=== PATIENT | female | born 1965 | race Caucasian/White ===

== ENCOUNTER 2018-06-27 18:30 | Emergency (ER) | payer BC, SELFPAY ==
[2018-06-27 18:31] VITALS: BP 129/77; PULSE 71; RESP 18; TEMP 36.9; O2SAT 99; BMI 26.6
--- NOTE | 2018-06-27 18:45 | ED.VISSUMM ---
- ER Visit Summary Date of Service: 06/27/18 Chief Complaint: Abdominal pain History of Present Illness: The patient is a 52 F who presents with abdominal pain. Started early this morning. She describes a diffuse cramping sensation throughout her abdomen. She has had nausea with vomiting with it. She started having a lot of loose stools and diarrhea. Now she states she has bright red blood per rectum. Denies any urinary symptoms. No history of this in the past. She denies fevers. She did nothing for it. She has had a hysterectomy in the past. Physical Examination: Vital signs reviewed. HEENT exam unremarkable. Heart is regular rate and rhythm without murmurs. Lungs are clear to auscultation. Abdomen is soft very mild diffuse tenderness. Rectal exam reveals a small hemorrhoid. No tenderness to palpation. No fissures. Extremities reveal no edema. Skin exam normal. Neurologic exam normal. Test Results: Lipitor studies are normal. FOBT positive. Acute abdominal series reveals chronic changes. Emergency Department Course and Treatment: Received Bentyl and Zofran. She feels much better. I believe this is likely a gastroenteritis. Patient will be treated with Bentyl and Zofran at home. She did have some slight blood in her stool. This is likely either from a hemorrhoid or irritation. Her blood counts are normal. She will monitor this at home Treatment Plan: [] Disposition: Discharge Impression: Gastroenteritis This note was generated with [employer] dictation software. It may contain incorrect words, spelling, and punctuation that were not noted in review of the chart prior to signing ED Disposition - Plan for ED Patient: Chief Complaint: Abd Pain Referrals: Piyush Moya III, MD [Primary Care Provider] -
[2018-06-27] MEDS: Ondansetron 4 MG/2 ML Vial IV (19:07)
[2018-06-27] MEDS: Dicyclomine 20 MG/2 ML Vial IM (19:09)
[2018-06-27 19:11] LABS: Absolute Lymphocyte Count 1.72 X10^3/ul (0.83-4.51); Absolute Neutrophil Count 6.7 X10^3/uL (2.0-7.7); Basophil# 0.02 X10^3/uL; Basophil% 0.2 % (0-1); Eosinophil# 0.03 X10^3/uL; Eosinophils% 0.3 % (0-5); Hematocrit 43.6 % (37-47); Hemoglobin 14.8 g/dl (12.0-15.0); Lymphocyte # 1.72 X10^3/ul (4.0); Mean Corp Hgb Conc 33.9 g/gl (32-36); Mean Corpuscular Hgb 28.7 pg (27.0-32.0); Mean Corpuscular Volume 84.5 fL (81-99); Mean Platelet Vol. 9.7 fl (6.2-12.0); Monocyte# 0.52 X10^3/uL; Monocyte% 5.8 % (0-10); Neutrophil # 6.73 X10^3/uL (2.7-7.7); Neutrophil % 74.5 % (47-70); Platelet Count 288 K/mm3 (150-450); RBC Distribution Width CV 11.8 % (11.6-14.6); RBC Distribution Width SD 36.3 fl (35.1-43.9); Red Blood Count 5.16 M/mm3 (4.2-5.4)
[2018-06-27 19:20] LABS: POSITIVE COUNT NO; POSITIVE DIFFERENTIAL NO; POSITIVE MORPHOLOGY NO
[2018-06-27 19:27] LABS: BUN 6 mg/dL (7-18); EST Glomerular Filtration Rate 94 mL/min (>60); Estimated Creatinine Clearance 86.52 ml/min; Glucose 95 mg/dL (74-106)
[2018-06-27 19:28] LABS: ALB/GLOB Ratio 1.1 RATIO (0.9-2.4); AST(SGOT) 16 U/L (15-37); Alanine Aminotransfer ALT/SGPT 23 U/L (13-56); Albumin, Serum 4.1 g/dL (3.2-5.0); Alkaline Phosphatase 60 U/L (45-117); Anion Gap 10 (5-15); BUN/Creat Ratio 8.6 RATIO (10-20); Calcium,Total 9.5 mg/dL (8.5-10.1); Chloride 108 mmol/L (98-107); Est Glom Filt Rate - Afr Amer 114 mL/min (>60); Globulin 3.6 g/dL (2.2-4.2); Lipase 113 U/L (73-393); Potassium 3.7 mmol/L (3.5-5.1); Protein, Total 7.7 g/dL (6.4-8.2); Sodium Level 142 mmol/L (136-145)
[2018-06-27 19:48] VITALS: BP 114/76; PULSE 55; RESP 16; O2SAT 98
--- NOTE | 2018-06-27 20:04 | ED.DEP ---
ED Disposition - Plan for ED Patient: Disposition: Home or Assisted Living Chief Complaint: Abd Pain Instructions: ED Abdominal Pain Unkn Cause Prescriptions: Ondansetron [Zofran Odt] 4 mg PO Q8H PRN PRN #10 tab PRN Reason: Nausea Dicyclomine HCl [Bentyl] 20 mg PO TIDAC #20 cap Referrals: Piyush Moya III, MD [Primary Care Provider] -
[2018-06-27 20:18] VITALS: BP 114/76; PULSE 55; RESP 16; O2SAT 98
== END 2018-06-27 20:19 | disposition home or self-care (01) ==
PROVIDERS: Emergency Provider Emergency Medicine; Family Provider Family Medicine; PCP Family Medicine
DX: K52.9 Noninfective gastroenteritis and colitis, unspecified (principal); K64.9 Unspecified hemorrhoids; K62.5 Hemorrhage of anus and rectum; K21.9 Gastro-esophageal reflux disease without esophagitis; Z79.899 Other long term (current) drug therapy; Z90.710 Acquired absence of both cervix and uterus
CPT/HCPCS: 74022; 80053; 82274; 83690; 85025; 96372; 96374; 99283; A4216; J2405

== ENCOUNTER 2019-05-16 17:21 | Emergency (ER) | payer BC, SELFPAY ==
[2019-05-16 17:22] VITALS: BP 119/81; PULSE 85; RESP 16; TEMP 36.4; O2SAT 98; BMI 26.6
--- NOTE | 2019-05-16 18:17 | ED.VIS.HA ---
History of Present Illness Chief Complaint: Headache Informant: Patient Onset: Days - 4 Context: Onset - awoke w/ sx Timing: Continuous Location: Left neck up to base of head Current Severity: Moderate Maximum Severity: Moderate Worsened by: Turning head especially to the left, palpation Relieved by: Remaining still Associated Symptoms: Negative for: Fever, Nausea, Vomiting, Sore Throat, Numbness, Tingling, Preceding Aura, Visual Changes, Blurred Vision, Photophobia, Visual Loss Injury: - - No injury or known overuse the day before, woke up this way Narrative: Patient does not feel she has an internal headache. She states she is able to turn her head to reproduce her symptoms and push on the affected area and reproduce them. No neurologic symptoms. No thunderclap. No known family history of cerebral aneurysms. Past Medical History - Allergies and Home Meds Allergies/Adverse Reactions: Allergies No Known Allergies Allergy (Verified 05/16/19 17:24) Primary Care Physician: Piyush Moya III, MD [Primary Care Provider] - Past Medical History: None Smoking Status: Never smoker Drugs: None Review of Systems General: Denies: Chills, Fever, Sweats Eyes: Denies: Visual changes - bilaterally, Diplopia ENT: Denies: Rhinorrhea, Sore throat Cardiovascular: Denies: Chest pain, Palpitations Respiratory: Denies: Dyspnea, Cough, Dyspnea on exertion Gastrointestinal: Denies: Abdominal pain, Nausea, Vomiting, Diarrhea, Melena, Hematochezia Genitourinary: Denies: Dysuria, Hematuria, Frequency Musculoskeletal: Reports: Neck pain. Denies: Back pain, Extremity Pain Skin: Denies: Rash, Wounds Neurological: Denies: Headache, Weakness, Numbness Physical Exam Vital Signs/Narrative: Vital Signs Temp Pulse Resp BP Pulse Ox 05/16/19 17:22 97.5 F L 85 16 119/81 H 98 Inital Vital Signs reviewed: Yes General: Well nourished, Well developed Head: NC, AT Eyes: Perrl, EOMI Neck: Supple, No Lymphadenopathy, No JVD, No Meningismus, Paraspinal Tenderness - From caudal left base of skull down to the shoulder portion of the trapezius there is tenderness and normal-appearing skin., - - No mastoid or sternocleidomastoid tenderness, swelling, erythema Back: Nontender, Normal Inspection. Negative for: CVA tenderness, Spinal tenderness Skin: Normal color, No rash, No Trauma Neuro: Alert, Oriented x3, Cranial nerves II-XII grossly intact, Normal Strength, Normal Sensation, Normal DTR, Normal Gait Psychological: Normal affect, Normal Mood Diagnostic/Tx/Re-eval - Medical Decision Making This is clearly musculoskeletal in etiology. All of it is reproducible with palpation and by the patient moving. I do not think she needs a head CT at this time and I discussed the logic why, her blood pressure is normal, she has no neurologic symptoms, and this is very clearly muscular skeletal. She is in agreement with supportive care and follow-up or return if worse. ED Disposition - Plan for ED Patient: Disposition: Home or Assisted Living Diagnosis: Musculoskeletal neck pain Instructions: Neck Sprain/Strain Prescriptions: cycloBENZAPRine HCl [Flexeril] 10 mg PO TID PRN #20 tab PRN Reason: Muscle Spasm Prescription Printed Naproxen [Naprosyn] 500 mg PO BID PRN #20 tab Prescription Printed Referrals: Piyush Moya III, MD [Primary Care Provider] - 3-5 Days if not improving
[2019-05-16] MEDS: Ketorolac 60 MG/2 ML Vial IM (18:23)
[2019-05-16 18:39] VITALS: BP 129/77; PULSE 62; RESP 15; O2SAT 98
== END 2019-05-16 18:39 | disposition home or self-care (01) ==
PROVIDERS: Emergency Provider Emergency Medicine; Family Provider Family Medicine; PCP Family Medicine
DX: M54.2 Cervicalgia (principal); Z79.899 Other long term (current) drug therapy
CPT/HCPCS: 96372; 99282

== ENCOUNTER 2020-06-12 15:35 | Emergency (ER) | payer BC, SELFPAY ==
[2020-06-12 15:36] VITALS: BP 146/95; PULSE 72; RESP 16; TEMP 36.5; O2SAT 100; BMI 25.0
--- NOTE | 2020-06-12 15:56 | RAD_ITS ---
STUDY: X-RAY - LEFT SHOULDER REASON FOR EXAM: Female, 54 years old. PATIENT FELL YESTERDAY. PAIN IN LEFT SHOULDER RADIATING DISTALLY INTO LEFT MID HUMERUS. TECHNIQUE: 4 view(s) of the shoulder. COMPARISON: 06/04/2016 FINDINGS: Normal glenohumeral articulation. Normal acromioclavicular joint. Normal acromion. Normal humeral head and visualized proximal humerus. The soft tissue structures are unremarkable. There is a stable calcified nodule projecting over the left lung apex consistent with an underlying granuloma. There is a stable calcified left hilar lymph node visualized as well. RAD/Shoulder min 2 Views IMPRESSION: Within normal limits x-ray examination of the shoulder. Electronically Signed: Clementina Banks MD at 16:21 EDT Tel , Service support ,
--- NOTE | 2020-06-12 16:00 | RAD_ITS ---
STUDY: X-RAY - LEFT HUMERUS REASON FOR EXAM: Female, 54 years old. PATIENT FELL YESTERDAY. PAIN IN LEFT SHOULDER RADIATING DISTALLY INTO LEFT MID HUMERUS. TECHNIQUE: 2 view(s) of the humerus. COMPARISON: None. FINDINGS: Normal visualized humerus. There is no demonstrated fracture or osseous destructive process. There is no demonstrated soft tissue abnormality. RAD/Humerus min 2 Views IMPRESSION: Normal x-ray examination of the humerus. Electronically Signed: Clementina Banks MD at 16:19 EDT Tel , Service support ,
--- NOTE | 2020-06-12 16:18 | ED.VIS.GEN ---
History of Present Illness Chief Complaint: Upper Extremity Injury Informant: Patient Narrative: Patient is a 54-year-old previously healthy female who presents to the ED for left upper extremity pain. She states she fell yesterday after tripping on concrete. She landed with her arm outstretched but states that she did not catch herself very well landing on her shoulder she believes. She denies hitting her head or losing consciousness. She did scrape up her knees. She states that the pain has been progressively getting worse. She has tried Aleve and ibuprofen for the pain. This has not given her any relief. She currently rates the pain as severe. Any movements of the arm especially lifting the arm makes the pain worse. No radiation down her extremity. The majority the pain is in the proximal humerus on the lateral aspect. No neck pain. No chest pain or back pain. No shortness of breath. She denies any other injury. She is right-handed at baseline. Past Medical History - Allergies and Home Meds Allergies/Adverse Reactions: Allergies No Known Allergies Allergy (Verified 06/12/20 15:52) Primary Care Physician: Piyush Moya III, MD [Primary Care Provider] - Prior records reviewed: Yes Past Medical History: None Smoking Status: Never smoker Alcohol: None Drugs: None Review of Systems All systems negative except as indicated General: Denies: Chills, Fever, Sweats Eyes: Denies: Visual changes - bilaterally, Diplopia ENT: Denies: Rhinorrhea Cardiovascular: Denies: Chest pain, Palpitations Respiratory: Denies: Dyspnea, Cough, Dyspnea on exertion Gastrointestinal: Denies: Abdominal pain, Nausea, Vomiting Musculoskeletal: Reports: Extremity Pain. Denies: Neck pain, Back pain, Swelling Skin: Denies: Rash, Wounds Neurological: Denies: Headache, Weakness, Numbness Hematologic: Denies: Easy bruising, Easy bleeding Physical Exam Vital Signs/Narrative: Vital Signs Temp Pulse Resp BP Pulse Ox 06/12/20 15:36 97.7 F L 72 16 146/95 H 100 Inital Vital Signs reviewed: Yes General: Well nourished, Well developed Head: Normocephalic, Atraumatic Eyes: Perrl, EOMI ENT: Moist mucous membranes Neck: Supple, Nontender Cardiovascular: Regular rate, Regular rhythm Respiratory: No distress, CTA bilaterally Abdomen: Soft, Nontender Back: Nontender Extremities: - - Tenderness along the proximal humerus on the lateral aspect. No external signs of trauma. Patient does have full range of motion but has significant pain with it. No pain overlying the joint. Neurovascularly intact. 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 Skin: Normal color, No rash Neurological: Alert, Oriented x3 Psychological: Normal affect, Normal Mood Diagnostic/Tx/Re-eval - Medical Decision Making Patient presents to the ED for traumatic left shoulder pain. X-rays are being obtained. Will treat symptomatically with Toradol. 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 X-rays did not show any evidence of fracture. Will recommend the patient uses rice. She can use a arm sling if this does help although she needs to get the arm out of the sling regularly to avoid a frozen shoulder. She is to follow-up with her PCP if this continues to bother her in the next few days. Warning signs and symptoms for which to return to the emergency department reviewed with her. She understands and is agreeable with this plan. Will discharge home in stable condition. ED Disposition - Plan for ED Patient: Disposition: Home or Assisted Living Diagnosis: Shoulder injury Instructions: ED EXTREMITY CONTUSION Upper Referrals: Piyush Moya III, MD [Primary Care Provider] - 3-5 Days if not improving
[2020-06-12] MEDS: Ketorolac 30 MG/ML Syringe IM (16:25)
== END 2020-06-12 17:38 | disposition home or self-care (01) ==
PROVIDERS: Emergency Provider Emergency Medicine; PCP Family Medicine
DX: S49.92XA Unspecified injury of left shoulder and upper arm, initial encounter (principal); W01.0XXA Fall on same level from slipping, tripping and stumbling without subsequent striking against object, initial encounter
CPT/HCPCS: 73030; 73060; 96372; 99282

== ENCOUNTER 2023-04-18 18:25 | Emergency (ER) | payer BC, SELFPAY ==
[2023-04-18 18:26] VITALS: BP 120/79; PULSE 95; RESP 18; TEMP 36.9; O2SAT 96; BMI 25.2
--- NOTE | 2023-04-18 18:37 | ED.VIS.BACK ---
HPI History of Present Illness Chief Complaint: Back Informant: patient Onset/Context/Timing Onset: Days (4 days) Context: Gradual Onset Timing: Waxes and wanes Quality: Sharp and Aching Current Severity: Moderate Maximum Severity: Severe Narrative Narrative: Patient presents secondary to right low back pain that she developed on . Patient denies injury. No history of back pain. No urinary symptoms. She states pain starts in the right low back wraps around her buttock and down into her right leg. No paresthesias. No leg weakness. PFSH PFSH Medical History no medical history no medical history Home Medications cyclobenzaprine 10 mg tablet 10 mg PO TID PRN Muscle Spasm #20 TABLETS 04/18/23 [Rx Last Taken Unknown] hydrocodone-acetaminophen 5-325mg 5mg-325mg 1 tab PO Q6H PRN PRN Pain 3 days #10 TABLETS 04/18/23 [Rx Last Taken Unknown] naproxen 500 mg tablet (Naprosyn) 500 mg PO BID PRN pain #20 tabs 04/18/23 [Rx Last Taken Unknown] prednisone 20 mg tablet 40 mg PO DAILY 4 days #8 tabs 04/18/23 [Rx Last Taken Unknown] Allergy/AdvReac Type Severity Reaction Status Date / Time No Known Allergies Allergy Verified 04/18/23 18:26 Surgical History (Updated 04/18/23 @ 18:[address] Bev Montano MD) History of hysterectomy Social History Smoking Status: Never smoker ROS ROS ED Constitutional Constitutional ED: Denies chills or fever(s) Eyes Eyes: Denies change in vision or discharge from eye(s) ENT ENT ED: Denies discharge from eye(s), rhinorrhea or sore throat Cardiovascular Cardiovascular: Denies chest pain or palpitations Respiratory/Chest Respiratory/Chest: Denies cough or dyspnea Gastrointestinal Gastrointestinal: Denies abdominal pain, nausea or vomiting Genitourinary Genitourinary ED: Denies difficulty urinating, dysuria or hematuria Musculoskeletal Musculoskeletal: Reports back pain; Denies extremity pain Integumentary Denies Abrasions or rash Neurologic Neurologic: Denies headache(s) or weakness Psychiatric Psychiatric: Denies anxiety or depression Allergic/Immunologic Allergic/Immunologic ED: Denies lip swelling or urticaria EXAM Physical Exam Const Vital Signs: 04/18/23 18:26 Temperature 98.5 F Temperature Source Temporal Pulse Rate 95 Respiratory Rate 18 Blood Pressure 120/79 Blood Pressure Mean 92 Pulse Ox 96 Positive well nourished and well developed General Appearance ED: well developed HEENT Reports moist mucous membranes Eyes EOMs intact bilaterally Neck no lymphadenopathy Resp normal respiratory effort and clear to auscultation bilaterally Cardio regular rate and regular rhythm GI normal to inspection, nondistended, normoactive bowel sounds Back/Spine Back/Spine Narrative: No midline thoracic or lumbar tenderness. Patient has focal reproducible tenderness over the right sciatic notch. Extremity normal to inspection Neuro oriented x3 and no sensory deficits noted Sensorium / Orientation: alert Motor Exam: strength 5/5 throughout Psych mental status grossly normal Skin no rashes or lesions noted MDM MDM MDM Narrative Medical decision making narrative: Patient has findings consistent with sciatica. I do not believe any imaging is needed as she has not had any trauma to her back. I did do an [facility] report and patient has had no narcotic prescriptions. Patient will be given prescription for naproxen, Flexeril, prednisone, [place]. Return instructions were provided. Discharge Plan Triage Chief Complaint: Back ED Provider: Bev Montano Dx/Rx/DC Orders Clinical Impression: Sciatica Instructions: ED Sciatica Prescriptions: New naproxen [Naprosyn] 500 mg tablet 500 mg PO BID PRN (Reason: pain) Qty: 20 0RF cyclobenzaprine 10 mg tablet 10 mg PO TID PRN (Reason: Muscle Spasm) Qty: 20 0RF prednisone 20 mg tablet 40 mg PO DAILY 4 Days Qty: 8 0RF hydrocodone-acetaminophen 5-325 mg tablet 1 tab PO Q6H PRN PRN (Reason: Pain) 3 Days Qty: 10 0RF Primary Care Provider: Lana Bartholomew Referrals: Lana Bartholomew MD [Primary Care Provider] - 1 Week Disposition Disposition: Home, Self Care
[2023-04-18] MEDS: predniSONE 20 MG Tablet 40 MG PO (18:41)
[2023-04-18] MEDS: cycloBENZAPRine HCl 10 MG Tablet PO (18:41)
[2023-04-18] MEDS: HYDROcodone Bitartrate/Apap 5/325 Tablet PO (18:41)
== END 2023-04-18 19:44 | disposition home or self-care (01) ==
LOC: ED 18:43
PROVIDERS: Emergency Provider Emergency Medicine; PCP Internal Medicine; Visit Provider Emergency Medicine
DX: M54.30 Sciatica, unspecified side (principal)
CPT/HCPCS: 99282

== ENCOUNTER 2023-10-05 05:10 | Emergency (ER) | payer BC, SELFPAY ==
[2023-10-05 05:11] VITALS: BP 118/79; PULSE 77; RESP 15; TEMP 36.9; O2SAT 98
--- NOTE | 2023-10-05 05:17 | EKG12_ITS ---
Test Reason : DYSRHYTHMIA Blood Pressure : / mmHG Vent. Rate : 065 BPM Atrial Rate : 065 BPM P-R Int : 144 ms QRS Dur : 076 ms QT Int : 390 ms P-R-T Axes : 042 041 068 degrees QTc Int : 405 ms Normal sinus rhythm Normal ECG Confirmed by CHAVO TRENT, GONSALO ([id number]), news editor AUBREY HONG ([id number]) on 10/11/2023 7:02:22 AM Referred By: Confirmed By:MARVA TONY MD
--- NOTE | 2023-10-05 05:18 | EDS_ITS ---
HPI History of Present Illness Chief Complaint: General Illness Detail of Chief Complaint: Not feeling well x 3 days Informant: patient Narrative Narrative: Patient presents to the emergency department stating that she has not felt well for 3 days. Initially she started with vomiting and diarrhea but then that resolved. She now has a cough. She describes body aches. She complains of pain in her chest with deep breath. Denies fever. She has had some chills. There have been multiple sick contacts at work. Patient has had her COVID- vaccine. Cough mostly nonproductive. Patient denies recent travel or surgery. PFSH PFSH Home Medications NK 10/05/23 [History Last Taken Unknown] Allergy/AdvReac Type Severity Reaction Status Date / Time No Known Allergies Allergy Verified 10/05/23 05:16 Surgical History (Updated 04/18/23 @ 18:[address] Bev Montano MD) History of hysterectomy Social History Smoking Status: Never smoker ROS ROS ED Review of Systems ROS Unobtainable: other Constitutional Constitutional ED: Reports lethargy; Denies chills, fever(s), sweats or weight loss Eyes Eyes: Denies blurry vision, change in vision or diplopia ENT ENT ED: Denies rhinorrhea or sore throat Cardiovascular Cardiovascular: Reports chest pain; Denies orthopnea or racing heartbeat Respiratory/Chest Respiratory/Chest: Reports cough and dyspnea; Denies dyspnea on exertion, orthopnea or sputum Gastrointestinal Gastrointestinal: Denies abdominal pain, diarrhea, nausea or vomiting Genitourinary Genitourinary ED: Denies dysuria, hematuria or urinary frequency Musculoskeletal Musculoskeletal: Reports myalgias; Denies arthralgias, back pain or neck pain Integumentary Denies abscess, Abrasions or rash Neurologic Neurologic: Reports headache(s); Denies weakness Psychiatric Psychiatric: Denies anxiety, depression or suicidal thoughts Endocrine Endocrinology: Denies polydipsia, polyphagia or polyuria Hematologic/Lymphatic Hematologic/Lymphatic: Denies easy bleeding, easy bruising or lymphadenopathy Allergic/Immunologic Allergic/Immunologic ED: Denies mouth swelling, tongue swelling or urticaria EXAM Physical Exam Const Vital Signs: 10/05/23 05:11 10/05/23 05:14 10/05/23 06:11 Temperature 98.5 F Temperature Source Temporal Pulse Rate 77 60 Respiratory Rate 15 12 Respiratory Effort Non-Labored Respiratory Pattern Normal Blood Pressure 118/79 136/72 H Blood Pressure Mean 92 93 Pulse Ox 98 98 Oxygen Delivery Method Room Air Positive well nourished and well developed General Appearance ED: well developed and NAD HEENT Reports TM's clear and moist mucous membranes normocephalic and atraumatic; Negative for trauma or tenderness Tympanic Membrane ED: Yes TM's clear Eyes PERRL and EOMs intact bilaterally General Eye ED: Negative for pale conjunctiva or scleral icterus Neck no lymphadenopathy, supple and no JVD General: Negative for tenderness Chest Wall inspection of chest normal and palpation of chest normal Chest: Negative for tenderness Resp normal respiratory effort and clear to auscultation bilaterally Effort and Inspection: Negative for respiratory distress or pain with movement Auscultation: Negative for rhonchi, wheezes or diminished lung sounds Cardio regular rate, regular rhythm, S1 normal heart sound, S2 normal heart sound and no murmurs Peripheral Pulses: pulses 2+ throughout GI normal to inspection, nondistended, normoactive bowel sounds, soft to palpation, non-tender, non-distended and no masses Back/Spine no CVA tenderness and no thoracic nor lumbar tenderness Extremity normal to inspection General Extremety ED: Negative for edema General Extremity: Negative for edema Neuro oriented x3, CN's II-XII intact bilaterally, no sensory deficits noted and gait normal Sensorium / Orientation: awake, alert, oriented to person, oriented to place and oriented to time Motor Exam: strength 5/5 throughout and strength abnormal Psych mental status grossly normal Skin no rashes or lesions noted and no wounds MDM MDM MDM Narrative Medical decision making narrative: Patient presents to the emergency department with complaint of cough and bodyaches as well as headache and initially had diarrhea and vomiting. Suspected likely viral infection although she did complain of some chest pain. Given her age I did obtain an EKG and basic labs. EKG obtained shows sinus rhythm with rate of 65 bpm with no acute ST segment changes. CBC with differential showed a normal white count of 6.9 with hemoglobin 13 and platelet count 225. Chemistries unremarkable. Troponin was normal at 7. Chest x-ray obtained 1 view showed no acute disease process. She did have a slightly depressed potassium of 3.0 for which I did order 40 mEq of potassium chloride p.o. Patient also was given Toradol 15 mg IV. COVID and flu testing obtained was positive for COVID-19. At this point I feel her symptoms are likely all related to COVID-19. Recommended symptomatic care. Patient otherwise healthy. Recommended quarantining from work for minimum 5 days. Lab Data Attestation: I reviewed the patient's lab results. Labs: Laboratory Results - last 24 hr 10/05/23 05:30 WBC 6.9 RBC 4.68 Hgb 13.3 Hct 38.7 MCV 82.7 MCH 28.4 MCHC 34.4 RDW Std Deviation 36.9 RDW Coeff of Nhi 12.1 Plt Count 225 MPV 9.7 Immature Gran % (Auto) 0.400 Neut % (Auto) 77.1 H Lymph % (Auto) 15.6 L [place] % (Auto) 6.8 Eos % (Auto) 0.0 Baso % (Auto) 0.1 Absolute Neuts (auto) 5.4 Absolute Lymphs (auto) 1.08 Nucleated RBC % 0 Sodium 139 Potassium 3.0 L Chloride 107 Carbon Dioxide 26.0 Anion Gap 6 BUN 8 Creatinine 0.60 Est GFR (MDRD) Af Amer 134 Est GFR (MDRD) Non-Af 111 BUN/Creatinine Ratio 13.4 Glucose 111 H Calcium 8.5 Troponin I High Sens 7 Radiography Chest X-Ray - ED: 1 View Diagnostic Testin view chest x-ray obtained interpreted by myself as no evidence of infiltrate o r pneumothorax or acute disease process. EKG Initial EKG: Attestation: I personally reviewed and interpreted this EKG as follows: Comments: Sinus rhythm with a rate of 65 bpm with no acute ST segment changes Discharge Plan Triage Chief Complaint: General Illness ED Provider: Ross Fountain Dx/Rx/DC Orders Clinical Impression: COVID-19 Instructions: Caring for Someone Who Has COVID-19 Prescriptions: No Action NK Primary Care Provider: Lana Bartholomew Referrals: Lana Bartholomew MD [Primary Care Provider] - As Needed Disposition Disposition: Home, Self Care Discharge Date/Time: 10/05/23 06:18
[2023-10-05] MEDS: Ketorolac 15 MG/ML Vial IV (05:32)
[2023-10-05] MEDS: 0.9% Normal Saline (1000mL) 1,000 ML 150 ML IV (05:33)
[2023-10-05 05:37] LABS: Absolute Lymphocyte Count 1.08 X10^3/uL (0.83-4.51); Absolute Neutrophil Count 5.4 X10^3/uL (2.0-7.7); Basophil# 0.01 X10^3/uL; Basophil% 0.1 % (0-1); Hematocrit 38.7 % (37-47); Hemoglobin 13.3 g/dL (12.0-15.0); Lymphocyte # 1.08 X10^3/ul (0.83-4.51); Lymphocyte % 15.6 % (19-41); Mean Corp Hgb Conc 34.4 g/dL (32-36); Mean Corpuscular Hgb 28.4 pg (27.0-32.0); Mean Corpuscular Volume 82.7 fL (81-99); Mean Platelet Vol. 9.7 fl (6.2-12.0); Monocyte# 0.47 X10^3/uL; Monocyte% 6.8 % (0-10); NRBC Flagged by Analyzer 0 % (0-5); Neutrophil # 5.35 X10^3/uL (2.7-7.7); Neutrophil % 77.1 % (47-70); Platelet Count 225 K/mm3 (150-450); RBC Distribution Width CV 12.1 % (11.6-14.6); RBC Distribution Width SD 36.9 fl (35.1-43.9); Red Blood Count 4.68 M/mm3 (4.2-5.4); White Blood Count 6.9 K/mm3 (4.4-11.0)
--- NOTE | 2023-10-05 05:40 | RAD_ITS ---
INDICATION: cough, cp EXAMINATION/TECHNIQUE: X-RAY - XR Chest 1 View COMPARISON: 06/27/2018 chest radiograph Findings: Single frontal view of the chest. LUNG PARENCHYMA: No acute focal airspace disease or significant mass lesion. Densely calcified tiny left apical granuloma. PLEURA: No pleural effusion. No pneumothorax. HEART/GREAT VESSELS: Cardiomediastinal silhouette is unremarkable. BONES: Osseous structures are unremarkable for age. RAD/Chest 1 View (Portable) IMPRESSION: Chest with no acute disease. Electronically Signed: Steffen Khan MD at 6:51 EST ,
[2023-10-05 05:56] LABS: Anion Gap 6 (5-15); BUN 8 mg/dL (7-18); BUN/Creat Ratio 13.4 RATIO (10-20); Calcium,Total 8.5 mg/dL (8.5-10.1); Chloride 107 mmol/L (98-107); EST Glomerular Filtration Rate 111 mL/min (>60); Est Glom Filt Rate - Afr Amer 134 mL/min (>60); Glucose 111 mg/dL (74-106); Sodium Level 139 mmol/L (136-145); Troponin-I HS 7 pg/mL (3.0-54.0)
[2023-10-05] MEDS: Potassium Chloride Oral Tablet 20 MEQ 40 MEQ PO (06:10)
[2023-10-05 06:11] VITALS: BP 136/72; PULSE 60; RESP 12; O2SAT 98
== END 2023-10-05 06:18 | disposition home or self-care (01) ==
PROVIDERS: Emergency Provider Emergency Medicine; PCP Internal Medicine; Visit Provider Emergency Medicine
DX: U07.1 COVID-19 (principal); E87.6 Hypokalemia
CPT/HCPCS: 71045; 80048; 84484; 85025; 87428; 93005; 96361; 96374; 99284

== ENCOUNTER 2025-06-24 20:25 | Emergency (ER) | payer BC, SELFPAY ==
[2025-06-24 20:25] VITALS: BP 143/87; PULSE 68; RESP 15; TEMP 36.6; O2SAT 99; BMI 25.6
--- OUTSIDE RECORDS SUMMARY | 2025-06-24 22:25 | XMS RPT_ITS | CCD ---
Author Organization [facility] ion Partnership [facility] Care Team Providers Care Community Associate Name Role Phone Unavailable Primary Care Provider UnavailBev Bunn Attending Unavailable Jeanna Bartholomwe Primary Care Unavailable Ross Fountain Attending Unavailable Jeanna Bartholomew Primary Care Unavailable Jeanna Bartholomew MD Primary Care Provider JEANNA BARTHOLOMEW Primary Care Unavailable JEANNA BARTHOLOMEW Primary Care Unavailable Allergies Allergy Classification Reported Allergen(s) Allergy Type Date of Onset Reaction(s) Facility (3 sources) environmental [Other] Propensity to adverse reactions 1 Other: See Comments [facility] (1 source) OTHER; Translations: [OTHER] Propensity to adverse reactions (disorder) 1 [facility] Repository Medications Current Medications Medication Drug Class(es) Dates Sig (Normalized) Sig (Original) [place] (Nk) (1 source) Start: 10-05-2023 [place] (Nk) A ctive October 05, 2023 12:00am Completed/Discontinued Medications Medication Drug Class(es) Dates Sig (Normalized) Sig (Original) acetaminophen 325 mg / HYDROcodone bitartrate 5 mg oral tablet (2 sources) Opioid Agonist Start: 04-18-2023 End: 10-05-2023 take 1 tablet by mouth every six hours as needed Hydrocodone-Acetami nophen Discontinued 1 TABLET PO EVERY 6 HOURS NEEDED 10 April 18, 2023 October 05, 2023 5:16am amoxicillin 875 mg / clavulanate 125 mg oral tablet (2 sources) Penicillin-class Antibacterial Start: 12-26-2021 End: 01-05-2022 take 1 tablet by mouth every twelve hours Amoxicillin-Pot Clavulanate Discontinued 1 TABLET PO Q12H 20 December 26, 2021 12:00am January 04, 2022 11:03pm cimetidine 200 mg oral tablet (2 sources) Histamine-2 Receptor Antagonist cimetidine (TAGAMET) 200 mg tablet Take 200 mg by mouth as directed. 0 Active Comment on above: Take 200 mg by mouth as directed. cyclobenzaprine hydrochloride 10 mg oral tablet (2 sources) Muscle Relaxant Start: 04-18-2023 End: 10-05-2023 take 10 mg by mouth three times daily Cyclobenzaprine Discontinued 10 MG PO THREE TIMES A DAY April 17, 2023 11:00pm October 05, 2023 5:16am diphenhydrAMINE (3 sources) Histamine-1 Receptor Antagonist DIPHENHYDRAMINE HCL (BENADRYL ORAL) Take by mouth. 0 Active Comment on above: Take by mouth. fluticasone propionate 0.05 mg/actuat metered dose nasal spray (2 sources) Corticosteroid Start: 06-01-2019 take 2 spray(s) by mouth once daily fluticasone (FLONASE) 50 mcg/actuation nasal spray Use 2 Sprays in each nostril once daily. Rinse mouth after use. 1 Bottle 0 06/01/2019 Active Comment on above: Use 2 Sprays in each nostril once daily. Rinse mouth after use. hydrOXYzine hydrochloride 25 mg oral tablet (3 sources) Antihistamine Start: 07-21-2023 take 1-2 tablets by mouth every six hours as needed hydrOXYzine HCl (ATARAX) 25 mg tablet Indications: Adjustment reaction with anxiety and depression , Insomnia, unspecified type Take 1-2 tablets by mouth every 6 hours as needed for itching/rash. 40 tablet 0 07/21/2023 Active Start: 09-04-2019 take 1-2 tablets by mouth every six hours as needed hydrOXYzine HCl (ATARAX) 25 mg tablet Indications: Adjustment reaction with anxiety and depression Take 1-2 tablets by mouth every 6 hours as needed for Itching/Rash. 40 tablet 1 09/04/2019 Active Comment on above: Take 1-2 tablets by mouth every 6 hours as needed for Itching/Rash. ibuprofen 800 mg oral tablet (2 sources) Nonsteroidal Anti-inflammatory Drug Start: 021 take 1 tablet by mouth every eight hours as needed ibuprofen (MOTRIN) 800 mg tablet Take 1 tablet by mouth every 8 hours as needed for Pain. Take with food. 30 tablet 0 12/18/2020 Active Comment on above: Take 1 tablet by andrew th every 8 hours as needed for Pain. Take with food. lansoprazole (2 sources) Proton Pump Inhibitor LANSOPRAZO LE (PREVACID ORAL) Take by mouth. 0 Active Comment on above: Take by mouth. metoclopramide 10 mg oral tablet (2 sources) Dopamine-2 Receptor Antagonist Start: 021 take 1 tablet by mouth every twelve hours as needed metoclopramide HCl (REGLAN) 10 mg tablet Take 1 tablet by mouth twice daily as needed (migraine headache). 30min before meals. 30 tablet 3 01/06/2021 Active Comment on above: Take 1 tablet by andrew th twice daily as needed (migraine headache). 30min before meals. naproxen 500 mg oral tablet (2 sources) Nonsteroidal Anti-inflammatory Drug Start: End: take 1 tablet by mouth twice daily Naproxen (Naprosyn) 500 mg tablet Discontinued 500 MG PO TWICE A DAY April 17, 2023 11:00pm October 05, 2023 5:16am ondansetron 4 mg disintegrating oral tablet (2 sources) Serotonin-3 Receptor Antagonist Start: take 1 tablet by mouth every eight hours as needed for nausea ondansetron orally disintegrating (ZOFRAN ODT) 4 mg disintegrating tablet Indications: Viral gastroenteritis Take 1 tablet by mouth every 8 hours as needed for Nausea/Vomiting. 30 tablet 0 01/03/2018 Active Comment on above: Take 1 tablet by andrew th every 8 hours as needed for Nausea/Vomiting. predniSONE 20 mg oral tablet (2 sources) Start: End: take 40 mg by mouth once daily Prednisone Discontinued 40 MG PO DAILY 8 April 17, 2023 11:00pm October 05, 2023 5:17am SUMAtriptan 50 mg oral tablet (3 sources) Serotonin-1b and Serotonin-1d Receptor Agonist Start: SUMAtriptan (IMITREX) 50 mg tablet Indications: Headache, unspecified headache type 50 mg every 2 hrs as needed for migraine (max 4/day or 9/mo) 9 tablet 0 07/21/2023 Active Start: 01-06-2021 SUMAtriptan (I MITREX) 50 mg tablet 50 mg every 2 hrs as needed for migraine (max 4/day or 9/mo) 9 tablet 4 01/06/2021 Active Comment on above: 50 mg every 2 hrs as needed for migraine (max 4/day or 9/mo) topiramate 25 mg oral tablet (2 sources) Start: 01-06-2021 take 1 tablet by mouth once daily at bedtime topiramate (TOPAMAX) 25 mg tablet Take 1 tablet by mouth daily at bedtime. 30 tablet 4 01/06/2021 Active Comment on above: Take 1 tablet by andrew th daily at bedtime. Problems Active Problems Problem Classification Problem Date Documented Date Episodic/Chronic Adjustment disorders (6 sources) Adjustment disorder with depressed mood; Translations: [Adjustment disorder with depressed mood] Onset: 09-22-2005 09-22-2005 Chronic Esophageal disorders (3 sources) Gastroesophageal reflux disease; Translations: [Gastro-esophageal reflux disease without esophagitis] Onset: 03-16-2011 03-16-2011 Chronic Genitourinary symptoms and ill-defined conditions (3 sources) Female stress incontinence; Translations: [Stress incontinence (female) (male)] Onset: 06-24-2012 06-24-2012 Chronic Headache; including migraine (3 sources) Migraine without aura, not refractory ; Translations: [Migraine without aura, not intractable, with status migrainosus] Onset: 01-06-2021 01-06-2021 Chronic Hemorrhoids (3 sources) Hemorrhoids; Translations: [Unspecified hemorrhoids] 09-22-2005 Episodic Menstrual disorders (3 sources) Menorrhagia; Translations: [Excessive and frequent menstruation with regular cycle] Onset: 06-24-2012 06-24-2012 Chronic Other connective tissue disease (1 source) Myalgia, other site; Translations: [Myalgia, other site] Onset: 10-09-2023 Episodic Other injuries and conditions due to external causes (2 sources) Injury of shoulder region; Translations: [Unspecified injury of shoulder and upper arm, unspecified arm, initial encounter] 06-13-2020 Episodic Other screening for suspected conditions (not mental disorders or infectious disease) (1 source) Patient encounter status; Translations: [Encounter for screening mammogram for malignant neoplasm of breast] 12-22-2023 Episodic Other upper respiratory infections (3 sources) Sore throat symptom; Translations: [Acute pharyngitis, unspecified] Episodic Otitis media and related conditions (2 sources) Acute left otitis media; Translations: [Otitis media, unspecified, left ear] 12-26-2021 Episodic Prolapse of female genital organs (3 sources) Uterine prolapse; Translations: [Uterovaginal prolapse, unspecified] Onset: 06-24-2012 06-24-2012 Chronic Spondylosis; intervertebral disc disorders; other back problems (4 sources) Neck pain; Translations: [Cervicalgia] 05-17-2019 Episodic Unclassified (1 source) Low back pain, unspecified; Translations: [Low back pain, unspecified] Onset: 04-22-2023 Viral infection (1 source) Disease caused by 2019-nCoV; Translations: [COVID-19] 10-05-2023 Episodic Past or Other Problems Problem Classification Problem Date Documented Da te Episodic/Chronic Other female genital disorders (3 sources) Enlarged uterus; Translations: [Hypertrophy of uterus] Onset: 06-24-2012 06-24-2012 Episodic Results Test Name Value Interpretation Reference Range Facility 12 Lead EKGon 10-05-2023 12 Lead EKG [facility] [address] [place] [id number] 12 Lead EKG 10/05/23 0529 MR#: [id number] Acct: [id number] Name: STARLA CUELLAR Rep #: [id number] : 1965 57 From: Prasanna Crawley MD Attending Dr: Dr. Ross Fountain DO Status: DEP E R Ordering Dr: Ross Fountain DO Date: 10/05/23 Location: ED Sex: F C Admitted: Test Reason : DYSRHYTHMIA Blood Pressure : / mmHG Vent. Rate : 065 BPM Atrial Rate : 065 BPM P-R Int : 144 ms QRS Dur : 076 ms QT Int : 390 ms P-R-T Axes : 042 041 068 degrees QTc Int : 405 ms Normal sinus rhythm Normal ECG Confirmed by CHAVO TRENT, GONSALO ([id number]), digital editor AUBREY HONG ([id number]) on 10/11/2023 7:02:22 AM Referred By: Confirmed By:MARVA CRAWLEY MD 10/11/23701 Date Prasanna Crawley MD CC: Dr. Jeanna Bartholomew MD; Dr. Ross Fountain, DO Signed Normal [facility] Absolute lymphocyte countOrd ered By: Ross Fountain on 10-05-2023 Lymphocytes Auto (Unsp spec) [#/Vol] 1.08 10*3/uL 0.83-4.51 [facility] Basic Metabolic Profile (BMP )on 10-05-2023 BUN/CRE 13.4 RATIO Normal 10-20 [facility] Comment on above: Order Comment: 'TROP ' Serial specimen #1, #2 or #3: 1 Performed By: #### L 100.0100, L500.2500, L501.4020 #### [facility] Laboratory [address] [place], [address] CA,Total 8.5 mg/dL Normal 8.5-10.1 [facility] Comment on above: Order Comment: 'TROP ' Serial specimen #1, #2 or #3: 1 Performed By: #### L 100.0100, L500.2500, L501.4020 #### [facility] [address] [place], [address] Chloride [Moles/Vol] 107 mmol/L Normal 98-107 [facility] Comment on above: Order Comment: 'TROP ' Serial specimen #1, #2 or #3: 1 Performed By: #### L 100.0100, L500.2500, L501.4020 #### [facility] [address] [place], [address] CO2 [Moles/Vol] 26.0 mmol/L Normal 21.0-32.0 [facility] Comment on above: Order Comment: 'TROP ' Serial specimen #1, #2 or #3: 1 Performed By: #### L 100.0100, L500.2500, L501.4020 #### [facility] [address] [place], [address] Creatinine [Mass/Vol] 0.60 mg/dL Normal 0.55-1.02 [facility] Comment on above: Order Comment: 'TROP ' Serial specimen #1, #2 or #3: 1 Result Comment: The validity of the calculated GFR GFRAA in patients over 70 years has not been determined. Clinical correlation is essential. Performed By: #### L 100.0100, L500.2500, L501.4020 #### [facility] [address] [place], [address] EST GFR - AA 134 mL/min Normal >60 [facility] Comment on above: Order Comment: 'TROP ' Serial specimen #1, #2 or #3: 1 Result Comment: Afri can Iranian GFR Calc Performed By: #### L 100.0100, L500.2500, L501.4020 #### [facility] [address] [place], [address] GAP 6 Normal 5-15 [facility] Comment on above: Order Comment: 'TROP ' Serial specimen #1, #2 or #3: 1 Performed By: #### L 100.0100, L500.2500, L501.4020 #### [facility] [address] [place], [address] GFR/1.73 sq M.predicted among non-blacks MDRD (S/P/Bld) [Vol rate/Area] 111 mL/min/{1.73_m2} Normal >60 [facility] Comment on above: Order Comment: 'TROP ' Serial specimen #1, #2 or #3: 1 Result Comment: Non- GFR Calc Performed By: #### L 100.0100, L500.2500, L501.4020 #### [facility] [address] [place], [address] Glucose [Mass/Vol] 111 mg/dL High 74-106 [facility] Comment on above: Order Comment: 'TROP ' Serial specimen #1, #2 or #3: 1 Result Comment: Fast ing Glucose result from 100 to 125 mg/dL suggests IMPAIRED HOMEOSTASIS per A.D.A. criteria. Performed By: #### L 100.0100, L500.2500, L501.4020 #### [facility] [address] [place], [address] Potassium [Moles/Vol] 3.0 mmol/L Low 3.5-5.1 [facility] Comment on above: Order Comment: 'TROP ' Serial specimen #1, #2 or #3: 1 Performed By: #### L 100.0100, L500.2500, L501.4020 #### [facility] [address] [place], [address] Sodium [Moles/Vol] 139 mmol/L Normal 136-145 [facility] Comment on above: Order Comment: 'TROP ' Serial specimen #1, #2 or #3: 1 Performed By: #### L 100.0100, L500.2500, L501.4020 #### [facility] [address] [place], [address] Urea nitrogen [Mass/Vol] 8 mg/dL Normal 7-18 [facility] Comment on above: Order Comment: 'TROP ' Serial specimen #1, #2 or #3: 1 Performed By: #### L 100.0100, L500.2500, L501.4020 #### [facility] [address] [place], [address] Basophil percentageOrdered B y: Hannahus Ungur on 10-05-2023 Basophils/100 WBC (Bld) 0.1 % 0-1 [facility] Chloride [Moles/Vol] 107 mmol/L 98-107 [facility] Eosinophils/100 WBC (Bld) 0.0 % 0-5 [facility] Glucose [Mass/Vol] 111 mg/dL 74-106 [facility] Comment on above: Fasting Glucose resu lt from 100 to 125 mg/dL suggests IMPAIRED HOMEOSTASIS per A.D.A. criteria. Neutrophils (Bld) [#/Vol] 5.4 10*3/uL 2.0-7.7 [facility] Neutrophils/100 WBC (Bld) 77.1 % 47-70 [facility] Potassium [Moles/Vol] 3.0 mmol/L 3.5-5.1 [facility] Sodium [Moles/Vol] 139 mmol/L 136-145 [facility] WBC (Bld) [#/Vol] 6.9 10*3/uL 4.4-11.0 [facility] Blood erythrocytes count (nu mber/volume)Ordered By: Ross Fountain on 10-05-2023 RBC (Bld) [#/Vol] 4.68 10*6/uL 4.2-5.4 [facility] Blood hemoglobin measurement (mass/volume)Ordered By: Ross Fountain on 10-05-2023 Hemoglobin (Bld) [Mass/Vol] 13.3 g/dL 12.0-15.0 [facility] Blood lymphocytes/100 leukoc ytesOrdered By: Ross Fountain on 10-05-2023 Lymphocytes/100 WBC (Bld) 15.6 % 19-41 [facility] Blood monocytes/100 leukocyt esOrdered By: Ross Fountain on 10-05-2023 Monocytes/100 WBC (Bld) 6.8 % 0-10 [facility] Blood platelet mean volumeOr dered By: Ross Fountain on 10-05-2023 Platelet mean volume (Bld) [Entitic vol] 9.7 fL 6.2-12.0 [facility] CBC W/Diff, Automatedon 09-24 Absolute Lymph 1.08 X10 3/uL Normal 0.83-4.51 [facility] Comment on above: Performed By: #### L 100.0100, L500.2500, L501.4020 #### [facility] [address] [place], [place] [address], [address] Absolute Neut 5.4 X10 3/uL Normal 2.0-7.7 [facility] Comment on above: Performed By: #### L 100.0100, L500.2500, L501.4020 #### [facility] [address] [place], [address] Basophils/100 WBC (Bld) 0.1 % Normal 0-1 [facility] Comment on above: Performed By: #### L 100.0100, L500.2500, L501.4020 #### [facility] [address] [place], [address] Eosinophils/100 WBC (Bld) 0.0 % Normal 0-5 [facility] Comment on above: Performed By: #### L 100.0100, L500.2500, L501.4020 #### [facility] [address] [place], [address] Erythrocyte distribution width (RBC) [Ratio] 12.1 % Normal 11.6-14.6 [facility] Comment on above: Performed By: #### L 100.0100, L500.2500, L501.4020 #### [facility] [address] [place], [address] Hematocrit (Bld) [Volume fraction] 38.7 % Normal 37-47 [facility] Comment on above: Performed By: #### L 100.0100, L500.2500, L501.4020 #### [facility] [address] [place], [address] Hemoglobin (Bld) [Mass/Vol] 13.3 g/dL Normal 12.0-15.0 [facility] Comment on above: Performed By: #### L 100.0100, L500.2500, L501.4020 #### [facility] [address] [place], [address] IG% 0.400 Normal 0.0-0.9 [facility] Comment on above: Result Comment: IG% - Immature Granulocytes (promyelocytes, myelocytes and metamyelocytes) > 1% indicates that a LEFT SHIFT is Present. Performed By: #### L 100.0100, L500.2500, L501.4020 #### [facility] [address] [place], [address] Lymphocytes/100 WBC (Bld) 15.6 % Low 19-41 [facility] Comment on above: Performed By: #### L 100.0100, L500.2500, L501.4020 #### [facility] [address] [place], [address] MCH (RBC) [Entitic mass] 28.4 pg Normal 27.0-32.0 [facility] Comment on above: Performed By: #### L 100.0100, L500.2500, L501.4020 #### [facility] [address] [place], [address] MCHC (RBC) [Mass/Vol] 34.4 g/dL Normal 32-36 [facility] Comment on above: Performed By: #### L 100.0100, L500.2500, L501.4020 #### [facility] [address] [place], [address] MCV (RBC) [Entitic vol] 82.7 fL Normal 81-99 [facility] Comment on above: Performed By: #### L 100.0100, L500.2500, L501.4020 #### [facility] [address] [place], [address] Monocytes/100 WBC (Bld) 6.8 % Normal 0-10 [facility] Comment on above: Performed By: #### L 100.0100, L500.2500, L501.4020 #### [facility] [address] [place], [address] Neutrophils/100 WBC (Bld) 77.1 % High 47-70 [facility] Comment on above: Performed By: #### L 100.0100, L500.2500, L501.4020 #### [facility] [address] [place], [address] Nucleated RBC (Bld) [#/Vol] 0 10*3/uL Normal 0-5 [facility] Comment on above: Performed By: #### L 100.0100, L500.2500, L501.4020 #### [facility] [address] [place], [address] Platelet mean volume (Bld) [Entitic vol] 9.7 fL Normal 6.2-12.0 [facility] Comment on above: Performed By: #### L 100.0100, L500.2500, L501.4020 #### [facility] [address] [place], [address] Platelets (Bld) [#/Vol] 225 10*3/uL Normal 150-450 [facility] Comment on above: Performed By: #### L 100.0100, L500.2500, L501.4020 #### [facility] [address] [place], [address] RBC (Bld) [#/Vol] 4.68 10*6/uL Normal 4.2-5.4 [facility] Comment on above: Performed By: #### L 100.0100, L500.2500, L501.4020 #### [facility] [address] [place], [address] RDW SD 36.9 fl Normal 35.1-43.9 [facility] Comment on above: Performed By: #### L 100.0100, L500.2500, L501.4020 #### [facility] [address] [place], [address] WBC (Bld) [#/Vol] 6.9 10*3/uL Normal 4.4-11.0 [facility] Comment on above: Performed By: #### L 100.0100, L500.2500, L501.4020 #### [facility] Laboratory [address] [place], [address] Chest 1 View (Portable)on Chest 1 View (Portable) [facility] Imaging Services [address] [place] [address] Chest 1 View (Portable) MR#: [id number] Acct: [id number] Name: STARLA CUELLAR Rep #: [id number] : 1965 F 57 From: Steffen Khan MD PCP: Dr. Jeanna Bartholomew MD Status: DEP ER Study: Chest 1 View (Portable) Date of Exam: 10/05/23 Exam# [id number] Ordering Dr: Ross Fountain DO [id number] INDICATION: cough, cp EXAMINATION/TECHNIQUE : X-RAY - XR Chest 1 View COMPARISON: 06/27/2018 chest radiograph Findings: Single frontal view of the chest. LUNG PARENCHYMA: No acute focal airspace disease or significant mass lesion. Densely calcified tiny left apical granuloma. PLEURA: No pleural effusion. No pneumothorax. HEART/GREAT VESSELS: Cardiomediastinal silhouette is unremarkable. BONES: Osseous structures are unremarkable for age. RAD/Chest 1 View (Portable) IMPRESSION: Chest with no acute disease. Electronically Signed: Steffen Khan MD at 6:51 EST , CC: Dr. Jeanna Bartholomew MD; Dr. Ross Fountain DO Deputy K 9: Signed Normal [facility] Determination of erythrocyte mean corpuscular volume (MCV)Ordered By: Ross Fountain on 10-05-2023 MCV (RBC) [Entitic vol] 82.7 fL 81-99 [facility] Emergency Department Summary on 10-05-2023 Emergency Department Summary [facility] Medical Records Department [address] [place] [address] Emergency Department Summary 10/05/23 MR#: [id number] Acct: [id number] Name: STARLA CUELLAR Rep #: [id number] : 1965 57 From: Ross Fountain DO PCP: Dr. Jeanna Bartholomew MD Status:DEP ER Location: ED HPI History of Present Illness Chief Complaint: General Illness Detail of Chief Complaint: Not feeling well x 3 days Informant: patient Narrative Narrative: Patient presents to the emergency department stating that she has not felt well for 3 days. Initially she started with vomiting and diarrhea but then that resolved. She now has a cough. She describes body aches. She complains of pain in her chest with deep breath. Denies fever. She has had some chills. There have been multiple sick contacts at work. Patient has had her COVID- vaccine. Cough mostly nonproductive. Patient denies recent travel or surgery. PFSH PFSH Home Medications NK 10/05/23 [History Last Taken Unknown] Allergy/AdvReac Type Severity Reaction Status Date / Time No Known Allergies Allergy Verified 10/05/23 05:16 Surgical History (Updated 04/18/23 @ 18:[address] Bev Montano MD) History of hysterectomy Social History Smoking Status: Never smoker ROS ROS ED Review of Systems ROS Unobtainable: other Constitutional Constitutional ED: Reports lethargy; Denies chills, fever(s), sweats or weight loss Eyes Eyes: Denies blurry vision, change in vision or diplopia ENT ENT ED: Denies rhinorrhea or sore throat Cardiovascular Cardiovascular: Reports chest pain; Denies orthopnea or racing heartbeat Respiratory/Chest Respiratory/Chest: Reports cough and dyspnea; Denies dyspnea on exertion, orthopnea or sputum Gastrointestinal Gastrointestinal: Denies abdominal pain, diarrhea, nausea or vomiting Genitourinary Genitourinary ED: Denies dysuria, hematuria or urinary frequency Musculoskeletal Musculoskeletal: Reports myalgias; Denies arthralgias, back pain or neck pain Integumentary Denies abscess, Abrasions or rash Neurologic Neurologic: Reports headache(s); Denies weakness Psychiatric Psychiatric: Denies anxiety, depression or suicidal thoughts Endocrine Endocrinology: Denies polydipsia, polyphagia or polyuria Hematologic/Lymphatic Hematologic/Lymphatic : Denies easy bleeding, easy bruising or lymphadenopathy Allergic/Immunologic Allergic/Immunologic ED: Denies mouth swelling, tongue swelling or urticaria EXAM Physical Exam Const Vital Signs: 10/05/23 05:11 10/05/23 05:14 10/05/23 06:11 Temperature 98.5 F Temperature Source Temporal Pulse Rate 77 60 Respiratory Rate 15 12 Respiratory Effort Non-Labored Respiratory Pattern Normal Blood Pressure 118/79 136/72 H Blood Pressure Mean 92 93 Pulse Ox 98 98 Oxygen Delivery Method Room Air Positive well nourished and well developed General Appearance ED: well developed and NAD HEENT Reports TM's clear and moist mucous membranes normocephalic and atraumatic; Negative for trauma or tenderness Tympanic Membrane ED: Yes TM's clear Eyes PERRL and EOMs intact bilaterally General Eye ED: Negative for pale conjunctiva or scleral icterus Neck no lymphadenopathy, supple and no JVD General: Negative for tenderness Chest Wall inspection of chest normal and palpation of chest normal Chest: Negative for tenderness Resp normal respiratory effort and clear to auscultation bilaterally Effort and Inspection: Negative for respiratory distress or pain with movement Auscultation: Negative for rhonchi, wheezes or diminished lung sounds Cardio regular rate, regular rhythm, S1 normal heart sound, S2 normal heart sound and no murmurs Peripheral Pulses: pulses 2+ throughout GI normal to inspection, nondistended, normoactive bowel sounds, soft to palpation, non-tender, non- distended and no masses Back/Spine no CVA tenderness and no thoracic nor lumbar tenderness Extremity normal to inspection General Extremety ED: Negative for edema General Extremity: Negative for edema Neuro oriented x3, CN's II-XII intact bilaterally, no sensory deficits noted and gait normal Sensorium / Orientation: awake, alert, oriented to person, oriented to place and oriented to time Motor Exam: strength 5/5 throughout and strength abnormal Psych mental status grossly normal Skin no rashes or lesions noted and no wounds MDM MDM MDM Narrative Medical decision making narrative: Patient presents to the emergency department with complaint of cough and bodyaches as well as headache and initially had diarrhea and vomiting. Suspected likely viral infection although she did complain of some chest pain. Given her age I did obtain an EKG and basic labs. EKG obtained shows (more content not included)... Normal [facility] Hematocrit Auto (Bld) [Volum e fraction]Ordered By: Ross Fountain on 10-05-2023 Hematocrit (Bld) [Volume fraction] 38.7 % 37-47 [facility] Influenza virus A and B and SARS-CoV-2 (COVID-19) Ag panel - Upper respiratory specimOrdered By: Ross Fountain on 10-05-2023 SARS-CoV-2 (COVID-19) RNA MARGUERITE+probe Ql (Resp) [facility] L501.4020on 10-05-2023 TROPONIN-I HS 7 pg/mL Normal 3.0-54.0 [facility] Comment on above: Order Comment: 'TROP ' Serial specimen #1, #2 or #3: 1 Result Comment: Plea se Note: New Test Units and Gender Specific Reference Ranges. For more information see Policy Stat Procedure [place] High Sensitivity Troponin (TNIH) and attachments. Performed By: #### L 100.0100, L500.2500, L501.4020 #### [facility] Laboratory [address], [place], [id number] Laboratory - Chemistry and C hemistry - challengeOrdered By: Ross Fountain on 10-05-2023 CO2 [Moles/Vol] 26.0 mmol/L 21.0-32.0 [facility] Urea nitrogen/Creatinine [Mass ratio] 13.4 mg/mg 10-20 [facility] Laboratory - Hematology and Cell countsOrdered By: Ross Fountain on 10-05-2023 Erythrocyte distribution width (RBC) [Entitic vol] 36.9 fL 35.1-43.9 [facility] Erythrocyte distribution width (RBC) [Ratio] 12.1 % 11.6-14.6 [facility] Immature granulocytes/100 WBC (Bld) 0.400 % 0.0-0.9 [facility] Comment on above: IG% - Immature Granu locytes (promyelocytes, myelocytes and metamyelocytes) > 1% indicates that a LEFT SHIFT is Present. MCH (RBC) [Entitic mass] 28.4 pg 27.0-32.0 [facility] Nucleated RBC/100 WBC (Bld) [Ratio] 0 % 0-5 [facility] [id number] 10-05-2023 M101.0111 Copy of report sent to Infection Control Printer [id number] 10/06/23 6029 JPJUAN DAVID. *Negative results from patients with symptom onset beyond five days should be treated as presumptive and confirmed by a molecular assay if clinically necessary. Negative results should not be used as the sole basis for treatment or for patient management. FLUABV+SARS-CoV2 Ag Pnl Up resp IA.rapid *Positive results do not differentiate between SARS-CoV and SARS-CoV-2. FLUABV+SARS-CoV2 Ag Pnl Up resp IA.rapid Negative Influenza results should be confirmed with FLU PANEL MOLECULAR if indicated. FLUABV+SARS-CoV2 Ag Pnl Up resp IA.rapid * This test has not been FDA cleared or approved; the test has been authorized by FDA under an Emergency Use Authorization (EAU) for use by laboratories certified under CLIA that meet the requirements to perform moderate, high, or waived complexity tests. FLUABV+SARS-CoV2 Ag Pnl Up resp IA.rapid Normal Reference Range: Negative Susanne, WILIAM method SARS-CoV-2 (COVID 19) A *POSITIVE* A Influenza Ag, Direct NEGATIVE for Influenza A/B Antigen (See Note) SARS-CoV-2 (COVID 19) * This is an amended result. * A prior result that was reported as final has been changed. 10/05/23 1504 by ROJAS Previously reported as: FINAL Normal [facility] Comment on above: Performed By: #### M 101.0111 #### [facility] [address] [place], [address] MCHC Auto (RBC) [Mass/Vol]Or dered By: Ross Fountain on 10-05-2023 MCHC (RBC) [Mass/Vol] 34.4 g/dL 32-36 [facility] No Panel InformationOrdered By: Ross Fountain on 10-05-2023 Estimated GFR (MDRD) Amer 134 mL/min >60 [facility] Comment on above: GFR Calc Estimated GFR (MDRD) Non-Af Amer 111 mL/min >60 [facility] Comment on above: Non- GFR Calc Troponin I High Sensitivity 7 pg/mL 3.0-54.0 [facility] Comment on above: Please Note: [place] t Units and Gender Specific Reference Ranges. For more information see Policy Stat Procedure [place] High Sensitivity Troponin (TNIH) and attachments. Platelets bldOrdered By: Hannah Александр on 10-05-2023 Platelets (Bld) [#/Vol] 225 10*3/uL 150-450 [facility] Serum or plasma calcium zeyad urement (mass/volume)Ordered By: Hannah Александр on 10-05-2023 Calcium [Mass/Vol] 8.5 mg/dL 8.5-10.1 [facility] Serum or plasma creatinine m easurement (mass/volume)Ordered By: Ross Александр on 10-05-2023 Creatinine [Mass/Vol] 0.60 mg/dL 0.55-1.02 [facility] Comment on above: The validity of the calculated GFR & GFRAA in patients over 70 years has not been determined. Clinical correlation is essential. Serum or plasma urea nitroge n measurement (mass/volume)Ordered By: Hannah Александр on 10-05-2023 Urea nitrogen [Mass/Vol] 8 mg/dL 7-18 [facility] Thin prep Papanicolaou smear with manual screeningOrdered By: Hannah Александр on 10-05-2023 Thin prep Papanicolaou smear with manual screening 6 5-15 [facility] CNOVon 07-21-2023 CNOV Office Visit ([facility] ) STARLA CUELLAR ([id number]) 1965 F Date Time Provider Department 07/21/23 12:00 PM [facility] During your visit today, we recorded the following information about you: Temperature Pulse Respiration Blood pressure 97.8 degrees 74/minute 16/minute 132/80 Weight 65.5 kg Brian Moore MD 07/21/2023 1:20 PM Signed Patient presents with: Headache: fatigue, not sleeping well-stress HPI: Headache: Duration: stressed and not sleeping well this month thinking about her brother passing away Location: top of the head Character: 8/10 pressure, Radiation: No. Aggravating: stress and not sleeping well Relieving: Pain relievers: Tylenol Associated: photophobia, insomnia, mind won't turn off at night Pertinent negatives: Denies fever, head injury, numbness PAST MEDICAL HISTORY Diagnosis Date GERD (gastroesophageal reflux disease) 03/16/2011 Pelvic pain in female Unspecified hemorrhoids without mention of complication MEDICATIONS: Current Outpatient Medications Medication Sig DIPHENHYDRAMINE HCL (BENADRYL ORAL) Take by mouth. No current facility-administered medications for this visit. ALLERGIES: ALLERGIES Allergen Reactions Environmental [Othe* Other: See Comments Sneezing, itchy eyes VITALS: BP 132/80 Pulse 74 Temp 36.6 ?C (97.8 ?F) Resp 16 Wt 65.5 kg (144 lb 6.4 oz) LMP 07/09/2012 SpO2 97% BMI 23.66 kg/m? PHYSICAL EXAM: GEN: Pleasant, appears to have a headache, otherwise in no acute distress. HEENT: PERRL, EOMI, conjunctiva clear Throat: moist mucous membranes, no erythema, no exudate Neck: supple, no thyromegaly, no lymphadenopathy HEART: regular rate and rhythm, no murmurs LUNGS: clear to auscultation, no wheezes or crackles, no increased WOB NEURO: Alert and oriented to person, place, and time. CN II-XII intact. DTR 2+/4. Normal strength. Normal gait. Eyelid twitch, No tremor. Normal cerebellar function in upper and lower extremities ASSESSMENT/PLAN: 1. Insomnia, unspecified type - ICD9: 780.52, ICD10: G47.00 (primary diagnosis) 2. Adjustment reaction with anxiety and depression - ICD9: 309.28, ICD10: F43.23 Schedule follow up with PCP. - HYDROXYZINE HCL 25 MG TABLET, will not be taking with benadryl (has not used this year yet). 3. Headache, unspecified headache type - ICD9: 784.0, ICD10: R51.9 Work excuse provided for today. Refill - SUMATRIPTAN 50 MG TABLET Brian Moore MD Allergies As of Date: 07/21/2023 Noted Allergy Reaction environmental [Other] 03/16/2011 14 - Other: See Comments Comments: Sneezing, itchy eyes Date Reviewed: 07/21/2023 Reviewed by: Opal Samson - Fully Assessed Reason for Visit: Headache [52] Cmt: fatigue, not sleeping well-stress Primary Visit Diagnosis:Insomnia, unspecified type [G47.00] Other Visit Diagnoses:Adjustment reaction with anxiety and depression [F43.23] Headache, unspecified headache type [R51.9] Order(s):SUMAtriptan (IMITREX) 50 mg omucot05 mg every 2 hrs as needed for migraine (max 4/day or 9/mo)Disp: 9 tabletRfl: 0 hydrOXYzine HCl (ATARAX) 25 mg tabletTake 1-2 tablets by mouth every 6 hours as needed for itching/rash.Disp: 40 tabletRfl: 0 Prescriptions as of 07/21/2023 - SUMAtriptan (IMITREX) 50 mg tablet 50 mg every 2 hrs as needed for migraine (max 4/day or 9/mo) - hydrOXYzine HCl (ATARAX) 25 mg tablet Take 1-2 tablets by mouth every 6 hours as needed for itching/rash. - DIPHENHYDRAMINE HCL (BENADRYL ORAL) Take by mouth. Problem List As Of Date 07/21/2023 Noted Resolved HEMORRHOIDS NOS [K64.9] ADJUSTMENT DISORDER WITH DEPRESSED MOOD [F43.21]09/22/2005 GERD (gastroesophageal reflux disease) [K21.9] 03/16/2011 Menorrhagia [N92.0] 06/24/2012 Bulky or enlarged uterus [N85.2] 06/24/2012 BRI (stress urinary incontinence, female) [N39.*06/24/2012 Uterine prolapse [N81.4] 06/24/2012 Situational depression [F43.21] 10/05/2017 Migraine without aura, not intractable, with st*01/06/2021 Prescriptions ordered this encounter Disp Refills Start End SUMATRIPTAN 50 MG TABLET 9 ta* 0 07/21/2023 Si mg every 2 hrs as needed for migraine (max 4/day or 9/mo) HYDROXYZINE HCL 25 MG TABLET 40 t* 0 07/21/2023 Route: ORAL Sig: Take 1-2 tablets by mouth every 6 hours as needed for itching/rash. Medications Discontinued During This Encounter Prescriptions - LANSOPRAZOLE (PREVACID ORAL) (Discontinued) Reported on 12/16/2022 - ondansetron orally disintegrating (ZOFRAN ODT) 4 mg disintegrating tablet (Discontinued) Reported on 01/30/2019 - fluticasone (FLONASE) 50 mcg/actuation nasal spray (Discontinued) Reported on 09/04/2019 - hydrOXYzine HCl (ATARAX) 25 mg tablet (Discontinued) Reported on 12/29/2019 - cimetidine (TAGAMET) 200 mg tablet (Discontinued) Reported on 12/16/2022 - ibuprofen (MOTRIN) 800 mg tablet (Discontinued) Reported (more content not included)... Normal [facility] Emergency Department Summary on 04-18-2023 Emergency Department Summary [facility] Medical Records Department [address] [place] [address] Emergency Department Summary 04/18/23 MR#: [id number] Acct: [id number] Name: STARLA CUELLAR Rep #: [id number] : 1965 57 From: Bev Montano MD PCP: Dr. Jeanna Bartholomew MD Status:DEP ER Location: ED HPI History of Present Illness Chief Complaint: Back Informant: patient Onset/Context/Timing Onset: Days (4 days) Context: Gradual Onset Timing: Waxes and wanes Quality: Sharp and Aching Current Severity: Moderate Maximum Severity: Severe Narrative Narrative: Patient presents secondary to right low back pain that she developed on . Patient denies injury. No history of back pain. No urinary symptoms. She states pain starts in the right low back wraps around her buttock and down into her right leg. No paresthesias. No leg weakness. PFSH PFSH Medical History no medical history no medical history Home Medications cyclobenzaprine 10 mg tablet 10 mg PO TID PRN Muscle Spasm #20 TABLETS 04/18/23 [Rx Last Taken Unknown] hydrocodone-acetamino phen 5-325mg 5mg-325mg 1 tab PO Q6H PRN PRN Pain 3 days #10 TABLETS 04/18/23 [Rx Last Taken Unknown] naproxen 500 mg tablet (Naprosyn) 500 mg PO BID PRN pain #20 tabs 04/18/23 [Rx Last Taken Unknown] prednisone 20 mg tablet 40 mg PO DAILY 4 days #8 tabs 04/18/23 [Rx Last Taken Unknown] Allergy/AdvReac Type Severity Reaction Status Date / Time No Known Allergies Allergy Verified 04/18/23 18:26 Surgical History (Updated 04/18/23 @ 18:[address] Bev Montano MD) History of hysterectomy Social History Smoking Status: Never smoker ROS ROS ED Constitutional Constitutional ED: Denies chills or fever(s) Eyes Eyes: Denies change in vision or discharge from eye(s) ENT ENT ED: Denies discharge from eye(s), rhinorrhea or sore throat Cardiovascular Cardiovascular: Denies chest pain or palpitations Respiratory/Chest Respiratory/Chest: Denies cough or dyspnea Gastrointestinal Gastrointestinal: Denies abdominal pain, nausea or vomiting Genitourinary Genitourinary ED: Denies difficulty urinating, dysuria or hematuria Musculoskeletal Musculoskeletal: Reports back pain; Denies extremity pain Integumentary Denies Abrasions or rash Neurologic Neurologic: Denies headache(s) or weakness Psychiatric Psychiatric: Denies anxiety or depression Allergic/Immunologic Allergic/Immunologic ED: Denies lip swelling or urticaria EXAM Physical Exam Const Vital Signs: 04/18/23 18:26 Temperature 98.5 F Temperature Source Temporal Pulse Rate 95 Respiratory Rate 18 Blood Pressure 120/79 Blood Pressure Mean 92 Pulse Ox 96 Positive well nourished and well developed General Appearance ED: well developed HEENT Reports moist mucous membranes Eyes EOMs intact bilaterally Neck no lymphadenopathy Resp normal respiratory effort and clear to auscultation bilaterally Cardio regular rate and regular rhythm GI normal to inspection, nondistended, normoactive bowel sounds Back/Spine Back/Spine Narrative: No midline thoracic or lumbar tenderness. Patient has focal reproducible tenderness over the right sciatic notch. Extremity normal to inspection Neuro oriented x3 and no sensory deficits noted Sensorium / Orientation: alert Motor Exam: strength 5/5 throughout Psych mental status grossly normal Skin no rashes or lesions noted MDM MDM MDM Narrative Medical decision making narrative: Patient has findings consistent with sciatica. I do not believe any imaging is needed as she has not had any trauma to her back. I did do an [facility] report and patient has had no narcotic prescriptions. Patient will be given prescription for naproxen, Flexeril, prednisone, [place]. Return instructions were provided. Discharge Plan Triage Chief Complaint: Back ED Provider: Bev Montano Dx/Rx/DC Orders Clinical Impression: Sciatica Instructions: ED Sciatica Prescriptions: New naproxen [Naprosyn] 500 mg tablet 500 mg PO BID PRN (Reason: pain) Qty: 20 0RF cyclobenzaprine 10 mg tablet 10 mg PO TID PRN (Reason: Muscle Spasm) Qty: 20 0RF prednisone 20 mg tablet 40 mg PO DAILY 4 Days Qty: 8 0RF hydrocodone-acetamino phen 5-325 mg tablet 1 tab PO Q6H PRN PRN (Reason: Pain) 3 Days Qty: 10 0RF Primary Care Provider: Jeanna Bartholomew Referrals: Jeanna Bartholomew MD [Primary Care Provider] - 1 Week Disposition Disposition: Home, Self Care What to do if you have Problems For any increased pain, shortness of breath, bleeding, nausea or vomiting, chest pain, or any unexpected problems, contact your Primary Care Provider. Call [facility] ([phone]) or report to the closest Emergency Room (more content not included)... Normal [facility] CNOVon 01-08-2023 CNOV Office Visit ([facility] ) STARLA CUELLAR ([id number]) 1965 F Date Time Provider Department 01/08/23 10:00 AM KALEN OROURKE [facility] During your visit today, we recorded the following information about you: Temperature Pulse Respiration Blood pressure 98.4 degrees 80/minute 21/minute 132/90 Weight 74.8 kg ARACELI Kay 01/08/2023 10:20 AM Signed This note was created using [employer]. Subjective Starla Cuellar is a 57 year old female. HPI 57 year old female presents for low back pain and concern for UTI. Has had low back pain for the past day. She states she has history of UTIs in the past and this is usually the only symptom she gets. No abdominal pain. No vomiting or fevers. No dysuria. No hematuria. She has a little bit of urgency. She has not had a fall or injury to the back. No numbness or tingling in the legs. No bowel or bladder incontinence. No other complaints. PAST MEDICAL HISTORY Diagnosis Date GERD (gastroesophageal reflux disease) 03/16/2011 Pelvic pain in female Unspecified hemorrhoids without mention of complication PAST SURGICAL HISTORY Procedure Laterality Date PAST SURGICAL HISTORY OF 07/28/2012 laparscopic hysterectomy and bladder sling at [facility] PAST SURGICAL HISTORY OF 10/21/2012 bladder sling at [facility] in [place] PAST SURGICAL HISTORY OF urethral dilation x2 SKIN BX, 1 LESION Skin biopsy ALLERGIES Environmental [Other] MEDICATIONS nitrofurantoin monohydrate and macrocrystal (MACROBID) 100 mg capsule Take 1 capsule by mouth twice daily for 5 days. SUMAtriptan (IMITREX) 50 mg tablet 50 mg every 2 hrs as needed for migraine (max 4/day or 9/mo) (Patient not taking: Reported on 12/16/2022) metoclopramide HCl (REGLAN) 10 mg tablet Take 1 tablet by mouth twice daily as needed (migraine headache). 30min before meals. (Patient not taking: Reported on 12/16/2022) topiramate (TOPAMAX) 25 mg tablet Take 1 tablet by mouth daily at bedtime. (Patient not taking: Reported on 12/16/2022) ibuprofen (MOTRIN) 800 mg tablet Take 1 tablet by mouth every 8 hours as needed for Pain. Take with food. (Patient not taking: Reported on 12/16/2022) cimetidine (TAGAMET) 200 mg tablet Take 200 mg by mouth as directed. (Patient not taking: Reported on 12/16/2022) hydrOXYzine HCl (ATARAX) 25 mg tablet Take 1-2 tablets by mouth every 6 hours as needed for Itching/Rash. (Patient not taking: Reported on 12/29/2019 ) fluticasone (FLONASE) 50 mcg/actuation nasal spray Use 2 Sprays in each nostril once daily. Rinse mouth after use. (Patient not taking: Reported on 09/04/2019 ) ondansetron orally disintegrating (ZOFRAN ODT) 4 mg disintegrating tablet Take 1 tablet by mouth every 8 hours as needed for Nausea/Vomiting. (Patient not taking: Reported on 01/30/2019 ) LANSOPRAZOLE (PREVACID ORAL) Take by mouth. (Patient not taking: Reported on 12/16/2022) DIPHENHYDRAMINE HCL (BENADRYL ORAL) Take by mouth. FAMILY HISTORY Problem Relation Age of Onset Hypertension Mother Diabetes Maternal Grandfather Ischemic Heart Disease Brother 44 of [place] other (ASHD) Maternal Uncle 50 CABG 3 Social History Tobacco Use Smoking status: Never Smokeless tobacco: Never Vaping Use Vaping Use: Never used Substance Use Topics Alcohol use: Yes Comment: occasionally Drug use: No Review of Systems Constitutional: Negative for chills and fever. HENT: Negative for congestion, ear pain and sore throat. Respiratory: Negative for cough and shortness of breath. Cardiovascular: Negative for chest pain. Gastrointestinal: Negative for diarrhea and vomiting. Genitourinary: Positive for urgency. Negative for flank pain and hematuria. Musculoskeletal: Positive for back pain. Objective BP 132/90 Pulse 80 Temp 36.9 ?C (98.4 ?F) Resp 21 Wt 74.8 kg (164 lb 12.8 oz) LMP 07/09/2012 SpO2 98% BMI 27.01 kg/m? Physical Exam Vitals and nursing note reviewed. Constitutional: General: She is not in acute distress. Appearance: Normal appearance. She is not toxic-appearing. Cardiovascular: Rate and Rhythm: Normal rate and regular rhythm. Pulmonary: Effort: Pulmonary effort is normal. Breath sounds: Normal breath sounds. Abdominal: General: Abdomen is flat. Palpations: Abdomen is soft. Tenderness: There is no abdominal tenderness. There is no right CVA tenderness or left CVA tenderness. Neurological: Mental Status: She is alert. Assessment and Plan ASSESSMENT/PLAN: 1. Urinary tract infection without hematuria, site unspecified - ICD9: 599.0, ICD10: N39.0 (primary diagnosis) acute - UA positive for jean-paul esterase and nitrates - Send urine for culture - Begin treatment with Macrobid 100 mg BID for 5 days - Patient education for prevention given 2. Acute low back pain without sciatica, unspecified back pain laterality - ICD9: 724.2, ICD10: M (more content not included)... Normal [facility] Vital Signs Date Time Vital Sign Value Performing Clinician Facility 10-05-2023 06:11-0500 Diastolic blood pressure 72 mm[Hg] [facility] 10-05-2023 06:11-0500 Heart rate 60 /min [facility] 10-05-2023 06:11-0500 Respiratory rate 12 /min [facility] 10-05-2023 06:11-0500 SaO2% (BldA) [Mass fraction] 98 % [facility] 10-05-2023 06:11-0500 Systolic blood pressure 136 mm[Hg] [facility] 10-05-2023 05:11-0500 Body height 165.1 cm [facility] 10-05-2023 05:11-0500 Body temperature 98.5 [degF] [facility] 04-18-2023 18:26-0400 Body height 165.1 cm [facility] 04-18-2023 18:26-0400 Body mass index (BMI) [Ratio] 25.2 kg/m2 [facility] 04-18-2023 18:26-0400 Body temperature 98.5 [degF] [facility] 04-18-2023 18:26-0400 Body weight 68.8 kg [facility] 04-18-2023 18:26-0400 Diastolic blood pressure 79 mm[Hg] [facility] 04-18-2023 18:26-0400 Heart rate 95 /min [facility] 04-18-2023 18:26-0400 Respiratory rate 18 /min [facility] 04-18-2023 18:26-0400 SaO2% (BldA) [Mass fraction] 96 % [facility] 04-18-2023 18:26-0400 Systolic blood pressure 120 mm[Hg] [facility] 12-16-2022 09:01-0500 Body temperature 98.29 [degF] Arelis Athy PA-C Work Phone: [facility] 12-16-2022 09:01-0500 Body weight 74.39 kg Arelis Athy PA-C Work Phone: [facility] 12-16-2022 09:01-0500 Diastolic blood pressure 72 mm[Hg] Arelis Athy PA-C Work Phone: [facility] 12-16-2022 09:01-0500 Heart rate 76 /min Arelis Athy PA-C Work Phone: [facility] 12-16-2022 09:01-0500 Respiratory rate 16 /min Arelis Athy PA-C Work Phone: [facility] [facility] 12-16-2022 09:01-0500 SaO2% (BldA) [Mass fraction] 97 % Arelis Athy PA-C Work Phone: [facility] 12-16-2022 09:01-0500 Systolic blood pressure 122 mm[Hg] Arelis Athy PA-C Work Phone: [facility] Encounters Encounter Date Encounter Type Care Provider Facility Start: 12-22-2023 ambulatory Jeanna quiroz MD Work Phone: [facility] [place] Start: 10-05-2023 End: 10-05-2023 Emergency department patient visit Ross Fountain Facility:[facility] Start: 10-05-2023 End: 10-05-2023 Emergency department patient visit [facility] Work Phone: Start: 07-21-2023 End: 07-21-2023 ambulatory JEANNA BARTHOLOMEW Facility:[facility] Start: 04-18-2023 End: 04-18-2023 Emergency department patient visit Bev Montano Facility:[facility] Start: 04-18-2023 End: 04-18-2023 Emergency department patient visit [facility] Start: 01-08-2023 End: 01-08-2023 ambulatory JEANNA BARTHOLOMEW Facility:[facility] Start: 12-17-2022 Telephone encounter Yaneth Bradshaw sneha CONTINUITY CLERK.AFTER SCHOOL TUTOR Work Phone: [facility] Comment on above: Results Start: 12-16-2022 End: 12-16-2022 Patient encounter procedure Arelis Palmer PA-C Work Phone: [facility] Comment on above: Sore throat (Primary Dx) Procedures Date Procedure Procedure Detail Performing Clinician Start: 10-05-2023 SARS-CoV-2 & FLU Ant igen (Rapid) Start: 07-03-2013 Mammography Arelis Palmer PA-C Work Phone: Start: 03-24-2011 Lipid 1996 panel - S martha or Plasma Jeanna Bartholomew MD Work Phone: Plan of Treatment Date Care Activity Detail Author Start: 10-05-2023 [facility] Start: 10-05-2023 Plain chest X-ray Chest 1 View (Port able) [facility] Start: 10-05-2023 XR Chest Single view [facility] Start: 06-25-2023 Covid-19 Vaccine ( season) Covid-19 Vaccine ( season) [facility] Start: 06-25-2023 Influenza vaccination Influenza Vacc ine (#1) [facility] Start: 12-16-2022 End: 12-30-2022 Influenza virus A and B RNA and SARS-CoV-2 (COVID-19) N gene panel - Respiratory specimen by MARGUERITE with probe detection [facility] Work Phone: Comment on above: Expected: 12/16/2022 , Expires: 12/30/2022 Start: 06-25-2022 Influenza vaccination INFLUENZA (#1) [facility] Start: 03-16-2022 Urine microalbumin profile [facility] Start: 01-15-2022 COVID-19 VACCINE (4 - Booster for Pfizer series) COVID-19 VACCINE (4 - Booster for Pfizer series) [facility] Start: 2017 SHINGRIX VACCINE (1 of 2) SHINGRIX VACCINE (1 of 2) [facility] Start: 02-16-2017 HPV TESTING HPV TESTING [facility] Start: 02-16-2017 PAP TESTING PAP TESTING [facility] Start: 02-16-2017 Screening for malign ant neoplasm of cervix [facility] Start: 10-12-2016 DIABETES SCREEN DIABETES SCREEN [facility] Start: 10-12-2016 Diabetes Screening Diabetes Screenin g [facility] Start: 03-24-2016 Lipid panel Lipid Screening [facility] Start: 03-24-2016 LIPID SCREEN LIPID SCREEN [facility] Start: 07-03-2014 Mammography MAMMOGRAM [facility] Start: 07-03-2014 Screening for malign ant neoplasm of breast Mammogram Screening [facility] Start: 2012 COLOGUARD (FIT-DNA) COLOGUARD (FIT-D NA) [facility] Start: 2012 Colonoscopy COLONOSCOPY [facility] Start: 2012 COLORECTAL CANCER SCREENING COLORECTAL CANCER SCREENING [facility] Start: [address] COLONOGRAPHY [facility] Start: 2012 FECAL OCCULT BLOOD FECAL OCCULT BLOO D [facility] Start: 2012 Screening for malign ant neoplasm of colon [facility] Start: 2012 SIGMOIDOSCOPY SIGMOIDOSCOPY [facility] Start: 1985 HEPATITIS C SCREENING HEPATITIS C [facility] Start: 1985 Hepatitis C screening Hepatitis C [facility] Start: 1985 HIV SCREENING HIV SCREENING [facility] Start: 1985 HIV screening HIV Screening [facility] Start: 1967 HEPATITIS B (1 of 3 - 3-dose series) HEPATITIS B (1 of 3 - 3-dose series) [facility] Start: 1965 Hepatitis B Vaccine (1 of 3 - 3-dose series) Hepatitis B Vaccine (1 of 3 - 3-dose series) [facility] End: 01-20-2025 MG Breast Screening PEÑA SCREENING Radiology Routine Encounter for screening mammogram for breast cancer 1 Occurrences starting 12/22/2023 until 01/20/2025 [facility] Work Phone: Comment on above: 1 Occurrences starti ng 12/22/2023 until 01/20/2025 Patient Education [facility] Work Phone: Patient referral Joanna [facility] Work Phone: STREP A MOLECULAR (POC) STREP A MOLECULAR (POC) Microbiology Routine Sore throat Ordered: 12/16/2022 [facility] Work Phone: Comment on above: Ordered: 12/16/2022 [facility] Immunizations Immunization Date Immunization Notes Care Provider [facility] 07-25-2019 influenza, seasonal, injectable Arelis Palmer PA-C Work Phone: [facility] 07-25-2019 influenza virus vaccine, unspecified formulation Jeanna Bartholomew MD Work Phone: [facility] 08-02-2017 influenza, seasonal, injectable Arelis Palmer PA-C Work Phone: [facility] 03-16-2012 tetanus toxoid, redu gissel diphtheria toxoid, and acellular pertussis vaccine, adsorbed Arelis Athy PA-C Work Phone: [facility] Work Phone: 11-05-1994 diphtheria and tetan us toxoids, adsorbed for pediatric use Arelis Palmer PA-C Work Phone: [facility] Work Phone: Payers Date Payer Category Payer Self-pay [id number] 2021 Unknown MOUNIKA MCKENNA PPO [id number] 2021-Present [phone] [id number] [place] [address] PPO [id number] 2006 Unknown [id number] Unknown [id number] Unknown [id number] Social History Date Type Detail Facility Start: 12-16-2022 Tobacco smoking stat us NHIS Never smoked tobacco [facility] Work Phone: Start: 12-16-2022 Tobacco use and exposure Smokeless tobacco non-user [facility] Work Phone: Start: 12-16-2022 End: 07-21-2023 Alcohol intake Current drinker of alcohol (finding) [facility] Start: 1965 Sex Assigned At Not on file [facility] Start: 04-18-2023 End: 10-05-2023 Tobacco smoking status NHIS Unknown if ever smoked [facility] Start: 06-12-2020 None [facility] Start: 1965 Sex Assigned At Female W [facility] Start: 10-02-2020 End: 07-21-2023 History of Social function [facility] Start: 10-02-2020 End: 07-21-2023 Tobacco use panel [facility] Adult Depression Screening Assessment 3 [facility] Mental Status Date Assessment Result Facility 10-05-2023 Cognitive function Level Of Cons ciousness Awake;Alert;Appropriate;Follow s Commands [facility] Work Phone: Clinical Note 12-22-2023 Note Date & Type Note Facility 12-22-2023 Note Patient Outreach (IN TMMN) STARLA CUELLAR ([id number]) 1965 F Date Time Provider Department 12/22/23 JEANNA BARTHOLOMEW During your visit today, we recorded the following information about you: Allergies As of Date: 12/22/2023 Noted Allergy Reaction environmental [Other] 03/16/2011 14 - Other: See Comments Comments: Sneezing, itchy eyes Date Reviewed: 07/21/2023 Reviewed by: Opal Samson - Fully Assessed Visit Diagnosis:Encounter for screening mammogram for breast cancer [Z12.31] Order(s):[facility] [[id number]] Order #: [id number] FUTURE Prescriptions as of 12/27/2023 - SUMAtriptan (IMITREX) 50 mg tablet 50 mg every 2 hrs as needed for migraine (max 4/day or 9/mo) - hydrOXYzine HCl (ATARAX) 25 mg tablet Take 1-2 tablets by mouth every 6 hours as needed for itching/rash. - DIPHENHYDRAMINE HCL (BENADRYL ORAL) Take by mouth. Problem List As Of Date 12/22/2023 Noted Resolved HEMORRHOIDS NOS [K64.9] ADJUSTMENT DISORDER WITH DEPRESSED MOOD [F43.21]09/22/2005 GERD (gastroesophageal reflux disease) [K21.9] 03/16/2011 Menorrhagia [N92.0] 06/24/2012 Bulky or enlarged uterus [N85.2] 06/24/2012 BRI (stress urinary incontinence, female) [N39.*06/24/2012 Uterine prolapse [N81.4] 06/24/2012 Situational depression [F43.21] 10/05/2017 Migraine without aura, not intractable, with st*01/06/2021 Encounter Status:Closed by EPIC, PRODUSER on 12/27/23 [facility] Progress note 07-21-2023 Note Date & Type Note Facility 07-21-2023 Note HNO ID: [id number] Author: Brian Moore MD Service: ? Author Type: Physician Type: Progress Notes Filed: 07/21/2023 1:20 PM Note Text: Patient presents with: Headache: fatigue, not sleeping well-stress HPI: Headache: Duration: stressed and not sleeping well this month thinking about her brother passing away Location: top of the head Character: 8/10 pressure, Radiation: No. Aggravating: stress and not sleeping well Relieving: Pain relievers: Tylenol Associated: photophobia, insomnia, mind won't turn off at night Pertinent negatives: Denies fever, head injury, numbness PAST MEDICAL HISTORY Diagnosis Date GERD (gastroesophageal reflux disease) 03/16/2011 Pelvic pain in female Unspecified hemorrhoids without mention of complication MEDICATIONS: Current Outpatient Medications Medication Sig DIPHENHYDRAMINE HCL (BENADRYL ORAL) Take by mouth. No current facility-administered medications for this visit. ALLERGIES: ALLERGIES Allergen Reactions Environmental [Othe* Other: See Comments Sneezing, itchy eyes VITALS: BP 132/80 Pulse 74 Temp 36.6 ?C (97.8 ?F) Resp 16 Wt 65.5 kg (144 lb 6.4 oz) LMP 07/09/2012 SpO2 97% BMI 23.66 kg/m? PHYSICAL EXAM: GEN: Pleasant, appears to have a headache, otherwise in no acute distress. HEENT: PERRL, EOMI, conjunctiva clear Throat: moist mucous membranes, no erythema, no exudate Neck: supple, no thyromegaly, no lymphadenopathy HEART: regular rate and rhythm, no murmurs LUNGS: clear to auscultation, no wheezes or crackles, no increased WOB NEURO: Alert and oriented to person, place, and time. CN II-XII intact. DTR 2+/4. Normal strength. Normal gait. Eyelid twitch, No tremor. Normal cerebellar function in upper and lower extremities ASSESSMENT/PLAN: 1. Insomnia, unspecified type - ICD9: 780.52, ICD10: G47.00 (primary diagnosis) 2. Adjustment reaction with anxiety and depression - ICD9: 309.28, ICD10: F43.23 Schedule follow up with PCP. - HYDROXYZINE HCL 25 MG TABLET, will not be taking with benadryl (has not used this year yet). 3. Headache, unspecified headache type - ICD9: 784.0, ICD10: R51.9 Work excuse provided for today. Refill - SUMATRIPTAN 50 MG TABLET Brian Moore MD [facility] Clinical Note 01-13-2023 Note Date & Type Note Facility 01-13-2023 Note Patient Outreach (IN TMMN) STARLA CUELLAR ([id number]) 1965 F Date Time Provider Department 01/13/23 JEANNA BARTHOLOMEW During your visit today, we recorded the following information about you: Allergies As of Date: 01/13/2023 Noted Allergy Reaction environmental [Other] 03/16/2011 14 - Other: See Comments Comments: Sneezing, itchy eyes Date Reviewed: 01/08/2023 Reviewed by: Tanvi Mena MA - Fully Assessed Visit Diagnosis:Encounter for screening mammogram for breast cancer [Z12.31] Order(s):[facility] [[id number]] Order #: [id number] FUTURE Prescriptions as of 01/18/2023 - SUMAtriptan (IMITREX) 50 mg tablet 50 mg every 2 hrs as needed for migraine (max 4/day or 9/mo) - metoclopramide HCl (REGLAN) 10 mg tablet Take 1 tablet by mouth twice daily as needed (migraine headache). 30min before meals. - topiramate (TOPAMAX) 25 mg tablet Take 1 tablet by mouth daily at bedtime. - ibuprofen (MOTRIN) 800 mg tablet Take 1 tablet by mouth every 8 hours as needed for Pain. Take with food. - cimetidine (TAGAMET) 200 mg tablet Take 200 mg by mouth as directed. - hydrOXYzine HCl (ATARAX) 25 mg tablet Take 1-2 tablets by mouth every 6 hours as needed for Itching/Rash. - fluticasone (FLONASE) 50 mcg/actuation nasal spray Use 2 Sprays in each nostril once daily. Rinse mouth after use. - ondansetron orally disintegrating (ZOFRAN ODT) 4 mg disintegrating tablet Take 1 tablet by mouth every 8 hours as needed for Nausea/Vomiting. - LANSOPRAZOLE (PREVACID ORAL) Take by mouth. - DIPHENHYDRAMINE HCL (BENADRYL ORAL) Take by mouth. Problem List As Of Date 01/13/2023 Noted Resolved HEMORRHOIDS NOS [K64.9] ADJUSTMENT DISORDER WITH DEPRESSED MOOD [F43.21]09/22/2005 GERD (gastroesophageal reflux disease) [K21.9] 03/16/2011 Menorrhagia [N92.0] 06/24/2012 Bulky or enlarged uterus [N85.2] 06/24/2012 BRI (stress urinary incontinence, female) [N39.*06/24/2012 Uterine prolapse [N81.4] 06/24/2012 Situational depression [F43.21] 10/05/2017 Migraine without aura, not intractable, with st*01/06/2021 Encounter Status:Closed by EPIC, PRODUSER on 01/18/23 [facility] Progress note 01-08-2023 Note Date & Type Note Facility 01-08-2023 Note HNO ID: [id number] Author: ARACELI Kay Service: ? Author Type: Physician Shoelace Tipping Machine Operator Type: Progress Notes Filed: 01/08/2023 10:20 AM Note Text: This note was created using [employer]. Subjective Starla Cuellar is a 57 year old female. HPI 57 year old female presents for low back pain and concern for UTI. Has had low back pain for the past day. She states she has history of UTIs in the past and this is usually the only symptom she gets. No abdominal pain. No vomiting or fevers. No dysuria. No hematuria. She has a little bit of urgency. She has not had a fall or injury to the back. No numbness or tingling in the legs. No bowel or bladder incontinence. No other complaints. PAST MEDICAL HISTORY Diagnosis Date GERD (gastroesophageal reflux disease) 03/16/2011 Pelvic pain in female Unspecified hemorrhoids without mention of complication PAST SURGICAL HISTORY Procedure Laterality Date PAST SURGICAL HISTORY OF 07/28/2012 laparscopic hysterectomy and bladder sling at [facility] PAST SURGICAL HISTORY OF 10/21/2012 bladder sling at [facility] in [place] PAST SURGICAL HISTORY OF urethral dilation x2 SKIN BX, 1 LESION Skin biopsy ALLERGIES Environmental [Other] MEDICATIONS nitrofurantoin monohydrate and macrocrystal (MACROBID) 100 mg capsule Take 1 capsule by mouth twice daily for 5 days. SUMAtriptan (IMITREX) 50 mg tablet 50 mg every 2 hrs as needed for migraine (max 4/day or 9/mo) (Patient not taking: Reported on 12/16/2022) metoclopramide HCl (REGLAN) 10 mg tablet Take 1 tablet by mouth twice daily as needed (migraine headache). 30min before meals. (Patient not taking: Reported on 12/16/2022) topiramate (TOPAMAX) 25 mg tablet Take 1 tablet by mouth daily at bedtime. (Patient not taking: Reported on 12/16/2022) ibuprofen (MOTRIN) 800 mg tablet Take 1 tablet by mouth every 8 hours as needed for Pain. Take with food. (Patient not taking: Reported on 12/16/2022) cimetidine (TAGAMET) 200 mg tablet Take 200 mg by mouth as directed. (Patient not taking: Reported on 12/16/2022) hydrOXYzine HCl (ATARAX) 25 mg tablet Take 1-2 tablets by mouth every 6 hours as needed for Itching/Rash. (Patient not taking: Reported on 12/29/2019 ) fluticasone (FLONASE) 50 mcg/actuation nasal spray Use 2 Sprays in each nostril once daily. Rinse mouth after use. (Patient not taking: Reported on 09/04/2019 ) ondansetron orally disintegrating (ZOFRAN ODT) 4 mg disintegrating tablet Take 1 tablet by mouth every 8 hours as needed for Nausea/Vomiting. (Patient not taking: Reported on 01/30/2019 ) LANSOPRAZOLE (PREVACID ORAL) Take by mouth. (Patient not taking: Reported on 12/16/2022) DIPHENHYDRAMINE HCL (BENADRYL ORAL) Take by mouth. FAMILY HISTORY Problem Relation Age of Onset Hypertension Mother Diabetes Maternal Grandfather Ischemic Heart Disease Brother 44 of [place] other (ASHD) Maternal Uncle 50 CABG 3 Social History Tobacco Use Smoking status: Never Smokeless tobacco: Never Vaping Use Vaping Use: Never used Substance Use Topics Alcohol use: Yes Comment: occasionally Drug use: No Review of Systems Constitutional: Negative for chills and fever. HENT: Negative for congestion, ear pain and sore throat. Respiratory: Negative for cough and shortness of breath. Cardiovascular: Negative for chest pain. Gastrointestinal: Negative for diarrhea and vomiting. Genitourinary: Positive for urgency. Negative for flank pain and hematuria. Musculoskeletal: Positive for back pain. Objective BP 132/90 Pulse 80 Temp 36.9 ?C (98.4 ?F) Resp 21 Wt 74.8 kg (164 lb 12.8 oz) LMP 07/09/2012 SpO2 98% BMI 27.01 kg/m? Physical Exam Vitals and nursing note reviewed. Constitutional: General: She is not in acute distress. Appearance: Normal appearance. She is not toxic-appearing. Cardiovascular: Rate and Rhythm: Normal rate and regular rhythm. Pulmonary: Effort: Pulmonary effort is normal. Breath sounds: Normal breath sounds. Abdominal: General: Abdomen is flat. Palpations: Abdomen is soft. Tenderness: There is no abdominal tenderness. There is no right CVA tenderness or left CVA tenderness. Neurological: Mental Status: She is alert. Assessment and Plan ASSESSMENT/PLAN: 1. Urinary tract infection without hematuria, site unspecified - ICD9: 599.0, ICD10: N39.0 (primary diagnosis) acute - UA positive for jean-paul esterase and nitrates - Send urine for culture - Begin treatment with Macrobid 100 mg BID for 5 days - Patient education for prevention given 2. Acute low back pain without sciatica, unspecified back pain laterality - ICD9: 724.2, ICD10: M54.50 - see above - UA DIP, URINE (POC) - URINE CULTURE Diagnosis and treatment plan were discussed and questions were answered to the patient's satisfaction. Pt acknowledged understanding of concepts and follow up plan. Specific signs and symptoms that would indicate the need f (more content not included)... [facility] Note 12-17-2022 Telephone Encounter - Sirisha Escobar LPN - 12/17/2022 9:10 AM ESTTelephone Encounter - Samantha Escobar LPN - 12/17/2022 8:46 AM ESTTelephone Encounter - Charity Ceja LPN - 12/17/2022 8:30 AM EST Note Date & Type Note Facility 12-17-2022 Miscellaneous Notes Formattin g of this note might be different from the original. Spoke with pt and information listed below given. Pt verbalizes understanding. Sirisha Escobar LPN Phone call placed brief message to contact a nurse to review results. Samantha Escobar LPN ----- Message from Yaneth Briceño APRN.CNP sent at 12/16/2022 8:09 PM EST ----- Please relay following to patient. You tested negative for COVID and Influenza. If you were tested because you were having symptoms, please monitor these symptoms and for any worrisome symptoms, please call your primary care provider or schedule a visit with [facility]. Yaneth Briceño APRN.DAWIT Unable to reach patient and phone listed rang as a fax number-try later.Charity Ceja LPN ----- Message from Yaneth Briceño APRN.CNP sent at 12/16/2022 8:09 PM EST ----- Please relay following to patient. You tested negative for COVID and Influenza. If you were tested because you were having symptoms, please monitor these symptoms and for any worrisome symptoms, please call your primary care provider or schedule a visit with [facility]. Yaneth Briceño APRN.AFTER SCHOOL TUTOR documented in this encounter [facility] History of Present illness Narrative 12-16-2022 Arelis Palmer PA-C - 12/16/2022 9:36 AM EST Note Date & Type Note Facility 12-16-2022 History of Presen t illness Narrative This note was created using [employer]. Subjective Starla Cuellar is a 56 year old female. HPI Presents with sore throat and sneezing over the past day. She states multiple coworkers have strep right now so she wanted to be tested. Denies cough or runny nose. She denies fever. No body aches or chills. Denies headache. No home COVID test done. No vomiting or diarrhea. Review of Systems Constitutional: Negative for fatigue and fever. HENT: Positive for congestion, sneezing and sore throat. Negative for ear pain. Respiratory: Negative. Cardiovascular: Negative. Gastrointestinal: Negative. Genitourinary: Negative. Musculoskeletal: Negative. All other systems reviewed and are negative. PAST MEDICAL HISTORY Diagnosis Date GERD (gastroesophageal reflux disease) 03/16/2011 Pelvic pain in female Unspecified hemorrhoids without mention of complication Current Outpatient Medications Medication Sig Dispense Refill DIPHENHYDRAMINE HCL (BENADRYL ORAL) Take by mouth. SUMAtriptan (IMITREX) 50 mg tablet 50 mg every 2 hrs as needed for migraine (max 4/day or 9/mo) (Patient not taking: Reported on 12/16/2022) 9 tablet 4 metoclopramide HCl (REGLAN) 10 mg tablet Take 1 tablet by mouth twice daily as needed (migraine headache). 30min before meals. (Patient not taking: Reported on 12/16/2022) 30 tablet 3 topiramate (TOPAMAX) 25 mg tablet Take 1 tablet by mouth daily at bedtime. (Patient not taking: Reported on 12/16/2022) 30 tablet 4 ibuprofen (MOTRIN) 800 mg tablet Take 1 tablet by mouth every 8 hours as needed for Pain. Take with food. (Patient not taking: Reported on 12/16/2022) 30 tablet 0 cimetidine (TAGAMET) 200 mg tablet Take 200 mg by mouth as directed. (Patient not taking: Reported on 12/16/2022) hydrOXYzine HCl (ATARAX) 25 mg tablet Take 1-2 tablets by mouth every 6 hours as needed for Itching/Rash. (Patient not taking: Reported on 12/29/2019 ) 40 tablet 1 fluticasone (FLONASE) 50 mcg/actuation nasal spray Use 2 Sprays in each nostril once daily. Rinse mouth after use. (Patient not taking: Reported on 09/04/2019 ) 1 Bottle 0 ondansetron orally disintegrating (ZOFRAN ODT) 4 mg disintegrating tablet Take 1 tablet by mouth every 8 hours as needed for Nausea/Vomiting. (Patient not taking: Reported on 01/30/2019 ) 30 tablet 0 LANSOPRAZOLE (PREVACID ORAL) Take by mouth. (Patient not taking: Reported on 12/16/2022) No current facility-administered medications for this visit. PAST SURGICAL HISTORY Procedure Laterality Date PAST SURGICAL HISTORY OF 07/28/2012 laparscopic hysterectomy and bladder sling at [facility] PAST SURGICAL HISTORY OF 10/21/2012 bladder sling at [facility] in [place] PAST SURGICAL HISTORY OF urethral dilation x2 SKIN BX, 1 LESION Skin biopsy FAMILY HISTORY Problem Relation Age of Onset Hypertension Mother Diabetes Maternal Grandfather Ischemic Heart Disease Brother 44 of [place] other (ASHD) Maternal Uncle 50 CABG 3 Social History Tobacco Use Smoking status: Never Smokeless tobacco: Never Vaping Use Vaping Use: Never used Substance Use Topics Alcohol use: Yes Comment: occasionally Drug use: No Objective BP 122/72 Pulse 76 Temp 36.8 C (98.3 F) Resp 16 Wt 74.4 kg (164 lb) LMP 07/09/2012 SpO2 97% BMI 26.88 kg/m Physical Exam Vitals reviewed. Constitutional: Appearance: Normal appearance. HENT: Head: Normocephalic and atraumatic. Right Ear: Tympanic membrane, ear canal and external ear normal. Left Ear: Tympanic membrane, ear canal and external ear normal. Nose: Congestion present. Mouth/Throat: Mouth: Mucous membranes are moist. Pharynx: Posterior oropharyngeal erythema present. No pharyngeal swelling, oropharyngeal exudate or uvula swelling. Tonsils: No tonsillar exudate or tonsillar abscesses. Cardiovascular: Rate and Rhythm: Normal rate and regular rhythm. Heart sounds: Normal heart sounds. Pulmonary: Effort: Pulmonary effort is normal. Breath sounds: Normal breath sounds. Musculoskeletal: Cervical back: Neck supple. Lymphadenopathy: Cervical: No cervical adenopathy. Skin: General: Skin is warm and dry. Findings: No rash. Neurological: General: No focal deficit present. Mental Status: She is alert and oriented to person, place, and time. Assessment and Plan ASSESSMENT/PLAN: 1. Sore throat - ICD9: 462, ICD10: J02.9 - Alere Strep Test negative, no culture pending - Discussed supportive care treatment with fluids, rest and analgesia. - The patient should follow up in 3-5 days if symptoms persist or worsen - STREP A MOLECULAR (POC) - COVID WITH FLUA+B, ROUTINE Arelis Palmer PA-C documented in this encounter [facility] Evaluation note Note Date & Type Note Facility Evaluation note Diagnosis Sore throat- Primary Acute pharyngitis documented in this encounter [facility] Evaluation note Note Date & Type Note Facility Evaluation note No assessment information tete tenorio [facility] Work Phone: Evaluation note Note Date & Type Note Facility Evaluation note Diagnosis Encounter for screening mammogram for breast cancer documented in this encounter [facility] Reason for referral (narrative) Diagnostic Procedure Only (Routine) - Pending Review Note Date & Type Note Facility Reason for referral (narrati ve) Specialty Diagnoses / Procedures Referred By Jean-Pierre t Referred To Contact [facility] Diagnoses Encounter for screening mammogram for breast cancer Procedures PEÑA SCREENING SCREENING MAMMOGRAPHY BI 2-VIEW BREAST INC CAD Jeanna Bartholomew MD [address] [place] [address] [facility] [address] [place] [address] Referral ID Status Reason Start Date Expiration Date Visits Requested Visits Authorized [id number] Pending Review Auto-Generat ed Referral 12/22/2023 01/20/[address] [facility] Chief Complaint and Reason for Visit Chief Complaint LOWER BACK PAIN Chief Complaint GENERAL ILLNESS/SOB Advance Directives No Advanced Directives Records Found Advance Directive Response Recorded Date/ Time Living Will No April 18, 2023 6:43pm Power of Outer Diameter Technician No April 18 6:43pm Advance Directive Response Recorded Date/ Time Living Will No October 05 023 5:14am Power of Outer Diameter Technician No October 05, 2023 5:14am Summary Purpose Family History No Family History Records FoundNo Family History Records Found Additional Source Comments Source Comments (unrecognize d section and content) In the event this informatio n is protected by the Federal Confidentiality of Alcohol and Drug Abuse Patient Records regulations: The Federal rules restrict any use of the information to criminally investigate or prosecute any alcohol or drug abuse patient.[facility] the event this information is protected by the Federal Confidentiality of Alcohol and Drug Abuse Patient Records regulations: The Federal rules restrict any use of the information to criminally investigate or prosecute any alcohol or drug abuse patient.[facility] the event this information is protected by the Federal Confidentiality of Alcohol and Drug Abuse Patient Records regulations: The Federal rules restrict any use of the information to criminally investigate or prosecute any alcohol or drug abuse patient.[facility] Reason for Visit (unrecogniz ed section and content) Reason Comments Sore Throat sneezing x 1 day Reason Comments Results Care Teams (unrecognized sec tion and content) Team Status: Active Member Role Status Dates Dr. Piyush Moya III, MD Family Provider Active Dr. Jeanna Bartholomew MD Primary Care Provider Active Team Status: Inactive Member Role Status Dates Dr. Jeanna Bartholomew MD Primary Care Provider Active Dr. Bev Montano MD Emergency Provider Active Team Status: Inactive Member Role Status Dates Dr. Jeanna Bartholomew MD Primary Care Provider Active Dr. Ross Fountain DO Emergency Provider Active Community Associate Relationship Specialty Start Date End Date Jeanna Bartholomew MD [address] [place] [address] PCP - General Internal Medicine 01/08/23 Goals (unrecognized section and content) Goals may be documented in a n alternate sectionGoals may be documented in an alternate section INFORMATION SOURCE (unrecogn ized section and content) DATE CREATED AUTHOR 10/11/2023 [facility] DATE CREATED AUTHOR AUTHORJustyn DIAMOND 12/27/2023 [facility] FOR RECORDS PERTAINING TO PATIENTS WHO ARE OR HAVE BEEN ENROLLED IN A CHEMICAL DEPENDENCY/SUBSTANCEABUSE PROGRAM, SOME INFORMATION MAY BE OMITTED. This clinical summary was aggregated from multiple sources. Caution should be exercised in using it in the provision of clinical care. This summary normalizes information from multiple sources, and as a consequence, information in this document may materially change the coding, format and clinical context of patient data. In addition, data may be omitted in some cases. CLINICAL DECISIONS SHOULD BE BASED ON THE PRIMARY CLINICAL RECORDS. [employer] provides no warranty or guarantee of the accuracy or completeness of information in this document.
== END 2025-06-24 21:00 | disposition left against medical advice (07) ==
LOC: ED 22:23
PROVIDERS: PCP Internal Medicine
DX: Z53.21 Procedure and treatment not carried out due to patient leaving prior to being seen by health care provider (principal)
CPT/HCPCS: 99281